=== PATIENT | female | born 1970 | race Caucasian/White ===

== ENCOUNTER → 2020-12-08 07:49 | Outpatient (CLI) | payer BC, SELFPAY ==
[2020-12-08 08:56] LABS: Add Manual Diff / Slide Review NO; Basophils Absolute Auto 0 /uL (0-100); Basophils Percent Auto 0.5 % (0-2); Eosinophils Absolute Auto 100 /uL (0-450); Hematocrit 42.7 % (36-46); Hemoglobin 14.2 g/dL (12.0-16.0); Lymphocytes Absolute Auto 2400 /uL (1100-4500); Lymphocytes Percent Auto 40.5 % (25-40); Mean Corpuscular HGB Conc 33.3 % (30-36); Mean Corpuscular Hemoglobin 34.1 PG (26-34); Mean Corpuscular Volume 102.5 fL (80-100); Monocytes Absolute Auto 700 /uL (0-900); Monocytes Percent Auto 10.9 % (3-14); Neutrophils Absolute Auto 2800 /uL (1500-7000); Neutrophils Percent Auto 47.1 % (50-75); Platelet Count 260 X10^3/uL (150-400); Red Blood Cell Count 4.16 X10^6/uL (4.0-5.2); Red Cell Distribution Width 12.8 % (11.6-14.8)
[2020-12-08 09:29] LABS: Alanine Aminotransferase 31 IU/L (<35); Albumin 4.8 g/dL (3.5-5.0); Albumin Globulin Ratio 1.3 (1.0-2.8); Alkaline Phosphatase 74 U/L (38-126); Aspartate Aminotransferase 42 IU/L (14-36); BUN Creatinine Ratio 18.8 (6-22); Bilirubin Total 0.7 mg/dL (0.2-1.3); Blood Urea Nitrogen 12 mg/dL (7-17); Calcium 9.5 mg/dL (8.4-10.2); Carbon Dioxide 27 mmol/L (22-32); Chloride 103 mmol/L (98-107); Cholesterol 312 mg/dL (140-199); Estimated Glomerular Filt Rate > 60.0 mL/min (>60); Globulin 3.6 g/dL (1.7-4.1); Glucose 90 mg/dL (70-100); Potassium 3.9 mmol/L (3.4-5.1); Sodium 136 mmol/L (137-145); Total Protein 8.4 g/dL (6.3-8.2); Triglycerides 75 mg/dL (35-150)
[2020-12-08 09:36] LABS: HEMOLYSIS 35 (0-50)
[2020-12-08 09:37] LABS: HDL Cholesterol 169 mg/dL (40-60); LDL Cholesterol Calculated 128 mg/dL (<100)
[2020-12-08 09:44] LABS: Free T4, Direct Thyroxine 1.13 ng/dL (0.78-2.19)
[2020-12-08 09:46] LABS: Vitamin D 25 Hydroxy (D3) 61.1 ng/mL (30.0-100.0)
[2020-12-08 09:57] LABS: Thyroid Stimulating Hormone 3.47 uIU/mL (0.47-4.68)
== END ==
PROVIDERS: PCP Family Medicine; Referring Provider Family Medicine; Visit Provider Family Medicine
DX: F32.9 Major depressive disorder, single episode, unspecified (principal); F41.9 Anxiety disorder, unspecified; I10 Essential (primary) hypertension; L65.9 Nonscarring hair loss, unspecified; Z13.29 Encounter for screening for other suspected endocrine disorder; Z80.3 Family history of malignant neoplasm of breast
CPT/HCPCS: 36415; 80053; 80061; 82306; 84439; 84443; 84481; 85025

== ENCOUNTER → 2021-01-15 13:44 | Outpatient (CLI) | payer BC, SELFPAY ==
[2021-01-18 09:24] LABS: Fecal Immunochemical Test Negative (Negative)
== END ==
PROVIDERS: PCP Family Medicine; Referring Provider Family Medicine; Visit Provider Family Medicine
DX: Z12.11 Encounter for screening for malignant neoplasm of colon (principal)
CPT/HCPCS: 82274

== ENCOUNTER → 2021-03-15 10:52 | Outpatient (CLI) | payer BC, SELFPAY ==
--- NOTE | 2021-03-15 10:53 | DI.MG.S_ITS ---
BILATERAL DIGITAL SCREENING MAMMOGRAM 3D/2D WITH CAD: 03/15/2021 CLINICAL: Routine screening. Comparison is made to exams dated: 11/21/2019 mammogram, 11/19/2018 mammogram, and 11/16/2017 mammogram - outside location. The tissue of both breasts is heterogeneously dense. This may lower the sensitivity of mammography. Current study was also evaluated with a Computer Aided Detection (CAD) system. No significant masses, calcifications, or other findings are seen in either breast. There has been no significant interval change. IMPRESSION: NEGATIVE There is no mammographic evidence of malignancy. A 1 year screening mammogram is recommended. This exam was interpreted at Station ID: [id number]. NOTE: For mammograms, a report in lay terms will be sent to the patient. Approximately 15% of breast malignancies will not be visualized mammographically. In the management of a palpable breast mass, a negative mammogram must not discourage biopsy of a clinically suspicious lesion. Electronically Signed By: Jv ramos/esther:03/15/2021 11:43:50 letter sent: Normal Exam ACR BI-RADS Category 1: Negative [id number]
== END ==
PROVIDERS: PCP Family Medicine; Referring Provider Family Medicine; Visit Provider Family Medicine
DX: Z12.31 Encounter for screening mammogram for malignant neoplasm of breast (principal)
CPT/HCPCS: 77063; 77067

== ENCOUNTER → 2021-12-13 07:17 | Outpatient (CLI) | payer BC, SELFPAY ==
[2021-12-13 07:58] LABS: Add Manual Diff / Slide Review NO; Basophils Absolute Auto 0 /uL (0-100); Basophils Percent Auto 0.8 % (0-2); Eosinophils Absolute Auto 100 /uL (0-450); Eosinophils Percent Auto 3.2 % (2-4); Hematocrit 39.5 % (36-46); Hemoglobin 13.3 g/dL (12.0-16.0); Lymphocytes Absolute Auto 1900 /uL (1100-4500); Mean Corpuscular HGB Conc 33.7 % (30-36); Mean Corpuscular Hemoglobin 32.9 PG (26-34); Mean Corpuscular Volume 97.8 fL (80-100); Monocytes Absolute Auto 500 /uL (0-900); Monocytes Percent Auto 13.7 % (3-14); Neutrophils Absolute Auto 1300 /uL (1500-7000); Neutrophils Percent Auto 32.3 % (50-75); Platelet Count 251 X10^3/uL (150-400); Red Blood Cell Count 4.04 X10^6/uL (4.0-5.2); Red Cell Distribution Width 12.4 % (11.6-14.8); White Blood Cell Count 3.9 X10^3/uL (4.5-11.0)
[2021-12-13 08:12] LABS: Alanine Aminotransferase 61 IU/L (<35); Albumin 4.4 g/dL (3.5-5.0); Albumin Globulin Ratio 1.4 (1.0-2.8); Alkaline Phosphatase 64 U/L (38-126); Aspartate Aminotransferase 48 IU/L (14-36); BUN Creatinine Ratio 15.4 (6-22); Bilirubin Total 0.5 mg/dL (0.2-1.3); Blood Urea Nitrogen 10 mg/dL (7-17); Calcium 9.1 mg/dL (8.4-10.2); Carbon Dioxide 33 mmol/L (22-32); Chloride 103 mmol/L (98-107); Cholesterol 277 mg/dL (140-199); Estimated Glomerular Filt Rate > 60.0 mL/min (>60); Globulin 3.2 g/dL (1.7-4.1); Glucose 100 mg/dL (70-100); HDL Cholesterol 107 mg/dL (40-60); HEMOLYSIS < 15 (0-50); LDL Cholesterol Calculated 158 mg/dL (<100); Potassium 4.2 mmol/L (3.4-5.1); Sodium 138 mmol/L (137-145); Total Protein 7.6 g/dL (6.3-8.2); Triglycerides 61 mg/dL (35-150)
== END ==
PROVIDERS: PCP Family Medicine; Referring Provider Family Medicine; Visit Provider Family Medicine
DX: D75.89 Other specified diseases of blood and blood-forming organs (principal); I10 Essential (primary) hypertension
CPT/HCPCS: 36415; 80053; 80061; 85025

== ENCOUNTER → 2022-01-03 11:33 | Outpatient (CLI) | payer BC, SELFPAY ==
[2022-01-04 13:38] LABS: Fecal Immunochemical Test Negative (Negative)
== END ==
PROVIDERS: PCP Family Medicine; Referring Provider Family Medicine; Visit Provider Family Medicine
DX: Z12.11 Encounter for screening for malignant neoplasm of colon (principal)
CPT/HCPCS: 82274

== ENCOUNTER → 2022-03-17 10:17 | Outpatient (CLI) | payer BC, SELFPAY ==
--- NOTE | 2022-03-17 10:19 | DI.MG.S_ITS ---
BILATERAL DIGITAL SCREENING MAMMOGRAM 3D/2D WITH CAD: 03/17/2022 CLINICAL: Routine screening. Comparison is made to exams dated: 03/15/2021 mammogram - [facility], 11/21/2019 mammogram, and 11/19/2018 mammogram - outside location. The tissue of both breasts is heterogeneously dense. This may lower the sensitivity of mammography. Current study was also evaluated with a Computer Aided Detection (CAD) system. No significant masses, calcifications, or other findings are seen in either breast. There has been no significant interval change. IMPRESSION: NEGATIVE There is no mammographic evidence of malignancy. A 1 year screening mammogram is recommended. This exam was interpreted at Station ID: [id number]. NOTE: For mammograms, a report in lay terms will be sent to the patient. Approximately 15% of breast malignancies will not be visualized mammographically. In the management of a palpable breast mass, a negative mammogram must not discourage biopsy of a clinically suspicious lesion. Electronically Signed By: Lupillo goodman/esther:03/17/2022 11:52:30 letter sent: Normal Exam ACR BI-RADS Category 1: Negative 3341F
== END ==
PROVIDERS: PCP Family Medicine; Referring Provider Family Medicine; Visit Provider Family Medicine
DX: Z12.31 Encounter for screening mammogram for malignant neoplasm of breast (principal)
CPT/HCPCS: 77063; 77067

== ENCOUNTER 2022-07-28 11:15 | Outpatient (RCR) | payer BC, SELFPAY ==
--- NOTE | 2022-06-30 18:28 | PT.OIE ---
Current Diagnoses Stiffness of unspecified hip, not elsewhere classified (06/30/22) Low back pain, unspecified (06/30/22) Other specified disorders of muscle (06/30/22) Bladder disorder, unspecified (06/30/22) Right lower quadrant pain (06/30/22) Past Medical History (Last Updated 05/19/22 @ 17:24 by AMADEO Iraheta) Anxiety (~2003) Anxiety and depression FHx: breast cancer Foot pain (~2017) Herpes (~1986) Hypertension (~1997) Iliotibial band syndrome, right leg Macrocytosis without anemia Nonscarring hair loss, unspecified Pelvic floor dysfunction in female Physical exam, annual Recurrent sinusitis (~2018) Screening for breast cancer Wears glasses Past Surgical History (Last Reviewed 05/11/22 @ 15:52 by AMADEO Iraheta) History of removal of cyst (~2004) Visit Care Team Role Provider Type AMADEO Iraheta Attending Provider Advanced Senior Financial Reporting Analyst Family Provider Primary Care Provider Referring Provider Specialty: [facility] Address: [address] [place] [address], [facility] Email: [email or web address] Physical Therapy Initial Evaluation PT-OP-A Visit Information Start: 06/23/22 17:55 Freq: Status: Active Protocol: Document 06/30/22 11:23 LRN (Rec: 06/30/22 12:44 JACQUELINE [id number]) Out-Patient Physical Therapy Visit Information Visit Information Visit Type Initial Evaluation Visit Note 11/21 Therapist only. Visit Start Time 11:23 Visit Stop Time 12:14 Total Visit Minutes 51 Visit Number 11/21 Evaluation Information Evaluation Date 06/30/22 Precautions Precautions Pt reported anxiety with quarterly couselor visits. PT-OP-B Current Condition Start: 06/23/22 17:55 Freq: Status: Active Protocol: Document 06/30/22 11:23 LRN (Rec: 06/30/22 12:44 LRN [id number]) Current Condition History of Current Condition Onset Date 1 yr ago Current Complaints Urinary leakage. History of Current Condition Slow insidious onset. When exert self, trip, sneeze, cough, or with exercise class. Takes magnesium for sleep at night; therefore counteracts it with Metamucil due to loose stool. Prior Treatments and Tests None Developmental History Developmental History Has not had children. Treatment Goals Patient/Caregiver Goals Pt goal is be able to increase PF strength, learn how to properly contract PF, decrease number of voidings (11+) to 7 -9x/day. Don't want to leak with sneezing, laughing and exercise. Painful L hip for past yr. Prior Functional Status Baseline Function- Other No urinary leakage. Current Functional Impairments (Reported) Functional Limitations- Other Urinary leakage with sneezing, lifting and exercise. Personal Factors Other Personal Factors That May Effect Has not had intercouse due to Therapy/Recovery spouse restrictions. 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 Hx of controlled HBP & controlled depression by medications. Hx of anxiety. PT-OP-C Subjective Start: 06/23/22 17:55 Freq: Status: Active Protocol: Document 06/30/22 11:23 LRN (Rec: 06/30/22 12:44 LRN [id number]) Patient Questionnaires Pelvic Pain and Urgency/Frequency Patient Symptom Scale Pelvic Pain Score 10 PT-OP-I Pelvic Floor Start: 06/23/22 17:55 Freq: Status: Active Protocol: Document 06/30/22 11:23 LRN (Rec: 06/30/22 12:44 LRN [id number]) Pelvic Floor Assessment Urine Urinary Symptoms Incomplete Emptying Leakage Size Small Leakage Cause Exercise,Lifting,Sneeze Voiding Frequency 10-12x/day Nocturia 2 Urine Pad Type Panty Liner Bowel Bowel Movement Frequency At least 1x daily Pelvic Clock Pelvic Clock 12-3 Tenderness Pelvic Clock 3-6 Atrophy Pelvic Clock Other Initial palpation only, tender at Pelvic Clock 3. Tender Pelvic clock 1-2, 8, 10 -11. Weak cobntraction Pelvic Clock 1-5. Contraction Ability Voluntary Contraction Moderate Voluntary Relaxation Weak Manual Muscle Testing Left 3 Manual Muscle Testing Right 3 Manual Muscle Testing Anterior 3 Manual Muscle Testing Posterior 3 Muscle Endurance (Seconds) 10 Number of Quick Contractions In 10 10 Seconds Comments Pelvic Floor Comments Pt uses abdomen, gluteals, and hip AD's to perform a PF contraction. PT-OP-J Posture/Palpation/Skin Start: 06/23/22 17:55 Freq: Status: Active Protocol: Document 06/30/22 11:23 LRN (Rec: 06/30/22 12:44 LRN [id number]) Posture Evaluation Position Standing Head/C-Spine Posture Side Bent Left,Forward Head T-Spine Posture Flattened L-Spine Posture Increased Lordosis Pelvis Posture (R) Rotated Posterior,(R) Iliac Crest Superior Comments Posture Comments Slight head tilt L and slight forward head. R chest is posterior. Upper T/S flattened. Decreased tone of R mid paraspinals. PT-OP-K Range of Motion Start: 06/23/22 17:55 Freq: Status: Active Protocol: Document 06/30/22 11:23 LRN (Rec: 06/30/22 12:44 LRN [id number]) Lumbar Spine Range of Motion Lumbar Spine Active Degrees Testing Position Standing Flexion 125 Extension 15 Rotation Right 20 Lateral Flexion Right 15 Comments Trunk flexion is 125 deg's with 75 deg's hip flexion Trunk ext is 15 deg's with 0 deg's hip ext Hip Goniometric Range of Motion Hip Right Passive Testing Position Supine Abduction 45 Internal Rotation 45 External Rotation 80 Comments SLR is WNL Left Passive Testing Position Supine Abduction 45 Internal Rotation 40 External Rotation 60 Comments SLR is WNL PT-OP-M Strength Start: 06/23/22 17:55 Freq: Status: Active Protocol: Document 06/30/22 11:23 LRN (Rec: 06/30/22 12:44 LRN [id number]) Trunk Strength Trunk Manual Muscle Testing Core Stabilization Poor core stab with MMT of flex & ext (R>L) Hip Strength Hip Manual Muscle Testing Right Flexion (L2) 4 Good Comments Strength is 5/5 except as indicated above. Left Comments Strength is 5/5 except as indicated above. PT-OP-Q Treatments Start: 06/23/22 17:55 Freq: Status: Active Protocol: Document 06/30/22 11:23 LRN (Rec: 06/30/22 12:44 LRN [id number]) Therapeutic Exercises Supine Exercises Kegels. Supine Exercise Name Verbal review of Kegel's w/o abs, gluts, Hip AD's Piriformis stretch Supine Exercise Name Ankle over knee, opp LE KTC. Side right Reps/Minutes 1x Self-Care/Home Management Treatment Education Other Education Discussed results of evaluation, goals, and plan of care (POC). Pt agreeable to goals and POC. Activities Self-Care/Home Management Activities Pt educated in proper Kegel ( HEP) to be done without substitute muscles. Issued & verbally reviewed HEP : Piriformis & LTR stretch bilaterally, along with I/S to do Happy Baby Pose, Child's Pose, and Spencer pose. PT-OP-T Assessment and Plan Start: 06/23/22 17:55 Freq: Status: Active Protocol: Document 06/30/22 11:23 LRN (Rec: 06/30/22 12:44 LRN [id number]) Physical Therapy Assessment Rehab Potential Rehabilitation Potential Good Evaluation Complexity Number of Personal Factors/Comorbidities 1-2 Number of Body Systems Impaired 4 or More Clinical Presentation at Evaluation Evolving Impairments Impairments Activity Tolerance,Pain, Posture,ROM,Soft Tissue Mobility Goals Three Impairment Pt uses substitute ms to perform a PF contraction. Short Term Goal (STG) Pt will be able to demonstrate a PF contraction without use of substitute muscles of the TA, Gluteal ms and hip AD's. STG Duration 08/16/22 [facility] Goal (LTG) Improve PF strength 3/5 around the PF clock in isolation of substitute muscles. LTG Duration 09/28/22 Two Impairment Urinary leakage with sneezing, laughing and exercise. Impairment Pt voids 11+ times/day. Pt has urinary leakage with sneezing, laughing and exercise. Short Term Goal (STG) Pt will be able to decrease number of voidings to 7-9x/day without an increase in urinary leakage. STG Duration 08/16/22 [facility] Goal (LTG) Pt will no longer have urinary leakage with sneezing, laughing and exercise. LTG Duration 09/28/22 One Impairment HEP Short Term Goal (STG) Pt will be educated in automatic core stab ex using proper breathing techniques, and PF contraction with laughing, sneezing and exercise. STG Duration 07/22/22 [facility] Goal (LTG) Pt will be educated in self care HEP of core & core/R hip flex/ext strengthening, Mobility ex's: trunk R SB, L hip ER, bilateral IR. LTG Duration 09/28/22 Assessment Summary Assessment Pt presents with PF tightness/ tenderness in PF clock 1-3, 8, and 10-11. Pt has weakness in PF clock 1-5 (L side). Pt has not had intercourse recently due to spouse health limitations, that may have in the past helped to provide stretch to her pelvic floor. Due to time constraints I was not able to assess her PF strength per EMG biofeedback, but will attempt at next visit . The pt demonstrates poor PF contraction technique with extensive use of substitute muscles to assist with her contraction. She also demonstrates poor core stabilization and lacks good coordination of her PF muscles when fly resulting in tightening of her PF without a drawing in pull. The pt's rehab will also be hindered by her low back pain and occasional R anterior hip pain that will probably need to be addressed during her PF rehabilitation. The pt will benefit from skilled physical therapy to achieve the above stated goals. Physical Therapy Plan Frequency and Duration Frequency of Treatment 1x/Week Plan of Care Start Date 06/30/22 Plan of Care End Date 08/16/22 Therapeutic Interventions Therapeutic Interventions Home Exercise Program,Joint Mobilizations,Manual Therapy, Neuromuscular Re-education, Patient/Caregiver Education, Self-Care/Home Management,Soft Tissue Mobilization, Therapeutic Activities, Therapeutic Exercises Modalities Cold Pack/Ice Massage,Electric Stimulation,Hot Packs Next Visit Focus/Plan Next Note Type Treatment Note Next Visit Plan Review Kegel without substitute muscles. EMG biofeedback training PF stretch with wand, Issue Bladder diary. Education in automatic core stab ex using proper breathing techniques bladder irritants, and PF contraction with laughing, sneezing and exercise (aggrevators). HEP of core & core/R hip flex/ ext strengthening, Mobility ex 's: trunk R SB, L hip ER, bilateral IR.
--- NOTE | 2022-06-30 18:29 | PT.OIE ---
Current Diagnoses Stiffness of unspecified hip, not elsewhere classified (06/30/22) Low back pain, unspecified (06/30/22) Other specified disorders of muscle (06/30/22) Bladder disorder, unspecified (06/30/22) Right lower quadrant pain (06/30/22) Past Medical History (Last Updated 05/19/22 @ 17:24 by AMADEO Iraheta) Anxiety (~2003) Anxiety and depression FHx: breast cancer Foot pain (~2017) Herpes (~1986) Hypertension (~1997) Iliotibial band syndrome, right leg Macrocytosis without anemia Nonscarring hair loss, unspecified Pelvic floor dysfunction in female Physical exam, annual Recurrent sinusitis (~2018) Screening for breast cancer Wears glasses Past Surgical History (Last Reviewed 05/11/22 @ 15:52 by AMADEO Iraheta) History of removal of cyst (~2004) Visit Care Team Role Provider Type AMADEO Iraheta Attending Provider Advanced Air Defense Artillery Officer Family Provider Primary Care Provider Referring Provider Specialty: [facility] Address: [address] [place] [address], [facility] Email: [email or web address] Physical Therapy Initial Evaluation PT-OP-A Visit Information Start: 06/23/22 17:55 Freq: Status: Active Protocol: Document 06/30/22 11:23 LRN (Rec: 06/30/22 12:44 JACQUELINE [id number]) Out-Patient Physical Therapy Visit Information Visit Information Visit Type Initial Evaluation Visit Note 11/21 Therapist only. Visit Start Time 11:23 Visit Stop Time 12:14 Total Visit Minutes 51 Visit Number 11/21 Evaluation Information Evaluation Date 06/30/22 Precautions Precautions Pt reported anxiety with quarterly couselor visits. PT-OP-B Current Condition Start: 06/23/22 17:55 Freq: Status: Active Protocol: Document 06/30/22 11:23 LRN (Rec: 06/30/22 12:44 LRN [id number]) Current Condition History of Current Condition Onset Date 1 yr ago Current Complaints Urinary leakage. History of Current Condition Slow insidious onset. When exert self, trip, sneeze, cough, or with exercise class. Takes magnesium for sleep at night; therefore counteracts it with Metamucil due to loose stool. Prior Treatments and Tests None Developmental History Developmental History Has not had children. Treatment Goals Patient/Caregiver Goals Pt goal is be able to increase PF strength, learn how to properly contract PF, decrease number of voidings (11+) to 7 -9x/day. Don't want to leak with sneezing, laughing and exercise. Painful L hip for past yr. Prior Functional Status Baseline Function- Other No urinary leakage. Current Functional Impairments (Reported) Functional Limitations- Other Urinary leakage with sneezing, lifting and exercise. Personal Factors Other Personal Factors That May Effect Has not had intercouse due to Therapy/Recovery spouse restrictions. 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 Hx of controlled HBP & controlled depression by medications. Hx of anxiety. PT-OP-C Subjective Start: 06/23/22 17:55 Freq: Status: Active Protocol: Document 06/30/22 11:23 LRN (Rec: 06/30/22 12:44 LRN [id number]) Patient Questionnaires Pelvic Pain and Urgency/Frequency Patient Symptom Scale Pelvic Pain Score 10 PT-OP-I Pelvic Floor Start: 06/23/22 17:55 Freq: Status: Active Protocol: Document 06/30/22 11:23 LRN (Rec: 06/30/22 12:44 LRN [id number]) Pelvic Floor Assessment Urine Urinary Symptoms Incomplete Emptying Leakage Size Small Leakage Cause Exercise,Lifting,Sneeze Voiding Frequency 10-12x/day Nocturia 2 Urine Pad Type Panty Liner Bowel Bowel Movement Frequency At least 1x daily Pelvic Clock Pelvic Clock 12-3 Tenderness Pelvic Clock 3-6 Atrophy Pelvic Clock Other Initial palpation only, tender at Pelvic Clock 3. Tender Pelvic clock 1-2, 8, 10 -11. Weak cobntraction Pelvic Clock 1-5. Contraction Ability Voluntary Contraction Moderate Voluntary Relaxation Weak Manual Muscle Testing Left 3 Manual Muscle Testing Right 3 Manual Muscle Testing Anterior 3 Manual Muscle Testing Posterior 3 Muscle Endurance (Seconds) 10 Number of Quick Contractions In 10 10 Seconds Comments Pelvic Floor Comments Pt uses abdomen, gluteals, and hip AD's to perform a PF contraction. PT-OP-J Posture/Palpation/Skin Start: 06/23/22 17:55 Freq: Status: Active Protocol: Document 06/30/22 11:23 LRN (Rec: 06/30/22 12:44 LRN [id number]) Posture Evaluation Position Standing Head/C-Spine Posture Side Bent Left,Forward Head T-Spine Posture Flattened L-Spine Posture Increased Lordosis Pelvis Posture (R) Rotated Posterior,(R) Iliac Crest Superior Comments Posture Comments Slight head tilt L and slight forward head. R chest is posterior. Upper T/S flattened. Decreased tone of R mid paraspinals. PT-OP-K Range of Motion Start: 06/23/22 17:55 Freq: Status: Active Protocol: Document 06/30/22 11:23 LRN (Rec: 06/30/22 12:44 LRN [id number]) Lumbar Spine Range of Motion Lumbar Spine Active Degrees Testing Position Standing Flexion 125 Extension 15 Rotation Right 20 Lateral Flexion Right 15 Comments Trunk flexion is 125 deg's with 75 deg's hip flexion Trunk ext is 15 deg's with 0 deg's hip ext Hip Goniometric Range of Motion Hip Right Passive Testing Position Supine Abduction 45 Internal Rotation 45 External Rotation 80 Comments SLR is WNL Left Passive Testing Position Supine Abduction 45 Internal Rotation 40 External Rotation 60 Comments SLR is WNL PT-OP-M Strength Start: 06/23/22 17:55 Freq: Status: Active Protocol: Document 06/30/22 11:23 LRN (Rec: 06/30/22 12:44 LRN [id number]) Trunk Strength Trunk Manual Muscle Testing Core Stabilization Poor core stab with MMT of flex & ext (R>L) Hip Strength Hip Manual Muscle Testing Right Flexion (L2) 4 Good Comments Strength is 5/5 except as indicated above. Left Comments Strength is 5/5 except as indicated above. PT-OP-Q Treatments Start: 06/23/22 17:55 Freq: Status: Active Protocol: Document 06/30/22 11:23 LRN (Rec: 06/30/22 12:44 LRN [id number]) Therapeutic Exercises Supine Exercises Kegels. Supine Exercise Name Verbal review of Kegel's w/o abs, gluts, Hip AD's Piriformis stretch Supine Exercise Name Ankle over knee, opp LE KTC. Side right Reps/Minutes 1x Self-Care/Home Management Treatment Education Other Education Discussed results of evaluation, goals, and plan of care (POC). Pt agreeable to goals and POC. Activities Self-Care/Home Management Activities Pt educated in proper Kegel ( HEP) to be done without substitute muscles. Issued & verbally reviewed HEP : Piriformis & LTR stretch bilaterally, along with I/S to do Happy Baby Pose, Child's Pose, and [place] pose. PT-OP-T Assessment and Plan Start: 06/23/22 17:55 Freq: Status: Active Protocol: Document 06/30/22 11:23 LRN (Rec: 06/30/22 12:44 LRN [id number]) Physical Therapy Assessment Rehab Potential Rehabilitation Potential Good Evaluation Complexity Number of Personal Factors/Comorbidities 1-2 Number of Body Systems Impaired 4 or More Clinical Presentation at Evaluation Evolving Impairments Impairments Activity Tolerance,Pain, Posture,ROM,Soft Tissue Mobility Goals Three Impairment Pt uses substitute ms to perform a PF contraction. Short Term Goal (STG) Pt will be able to demonstrate a PF contraction without use of substitute muscles of the TA, Gluteal ms and hip AD's. STG Duration 08/16/22 Retirement Goal (LTG) Improve PF strength 3/5 around the PF clock in isolation of substitute muscles. LTG Duration 09/28/22 Two Impairment Urinary leakage with sneezing, laughing and exercise. Impairment Pt voids 11+ times/day. Pt has urinary leakage with sneezing, laughing and exercise. Short Term Goal (STG) Pt will be able to decrease number of voidings to 7-9x/day without an increase in urinary leakage. STG Duration 08/16/22 Retirement Goal (LTG) Pt will no longer have urinary leakage with sneezing, laughing and exercise. LTG Duration 09/28/22 One Impairment HEP Short Term Goal (STG) Pt will be educated in automatic core stab ex using proper breathing techniques, and PF contraction with laughing, sneezing and exercise. STG Duration 07/22/22 Retirement Goal (LTG) Pt will be educated in self care HEP of core & core/R hip flex/ext strengthening, Mobility ex's: trunk R SB, L hip ER, bilateral IR. LTG Duration 09/28/22 Assessment Summary Assessment Pt presents with PF tightness/ tenderness in PF clock 1-3, 8, and 10-11. Pt has weakness in PF clock 1-5 (L side). Pt has not had intercourse recently due to spouse health limitations, that may have in the past helped to provide stretch to her pelvic floor. Due to time constraints I was not able to assess her PF strength per EMG biofeedback, but will attempt at next visit . The pt demonstrates poor PF contraction technique with extensive use of substitute muscles to assist with her contraction. She also demonstrates poor core stabilization and lacks good coordination of her PF muscles when fly resulting in tightening of her PF without a drawing in pull. The pt's rehab will also be hindered by her low back pain and occasional R anterior hip pain that will probably need to be addressed during her PF rehabilitation. The pt will benefit from skilled physical therapy to achieve the above stated goals. Physical Therapy Plan Frequency and Duration Frequency of Treatment 1x/Week Plan of Care Start Date 06/30/22 Plan of Care End Date 09/28/22 Therapeutic Interventions Therapeutic Interventions Home Exercise Program,Joint Mobilizations,Manual Therapy, Neuromuscular Re-education, Patient/Caregiver Education, Self-Care/Home Management,Soft Tissue Mobilization, Therapeutic Activities, Therapeutic Exercises Modalities Cold Pack/Ice Massage,Electric Stimulation,Hot Packs Next Visit Focus/Plan Next Note Type Treatment Note Next Visit Plan Review Kegel without substitute muscles. EMG biofeedback training PF stretch with wand, Issue Bladder diary. Education in automatic core stab ex using proper breathing techniques bladder irritants, and PF contraction with laughing, sneezing and exercise (aggrevators). HEP of core & core/R hip flex/ ext strengthening, Mobility ex 's: trunk R SB, L hip ER, bilateral IR.
--- NOTE | 2022-07-14 18:09 | PT.OTN ---
Current Diagnoses Stiffness of unspecified hip, not elsewhere classified (07/14/22) Low back pain, unspecified (07/14/22) Other specified disorders of muscle (07/14/22) Bladder disorder, unspecified (07/14/22) Right lower quadrant pain (07/14/22) Physical Therapy Treatment Note PT-OP-A Visit Information Start: 06/23/22 17:55 Freq: Status: Active Protocol: Document 07/14/22 13:49 LRN (Rec: 07/14/22 14:34 LRN [id number]) Out-Patient Physical Therapy Visit Information Visit Information Visit Type Treatment Note Visit Start Time 13:49 Visit Stop Time 14:27 Total Visit Minutes 38 Visit Number Evaluation Information Evaluation Date 06/30/22 Precautions Precautions Pt reported anxiety with quarterly couselor visits. PT-OP-B Current Condition Start: 06/23/22 17:55 Freq: Status: Active Protocol: Document 06/30/22 11:23 LRN (Rec: 06/30/22 12:44 LRN [id number]) Current Condition History of Current Condition Onset Date 1 yr ago Current Complaints Urinary leakage. History of Current Condition Slow insidious onset. When exert self, trip, sneeze, cough, or with exercise class. Takes magnesium for sleep at night; therefore counteracts it with Metamucil due to loose stool. Prior Treatments and Tests None Developmental History Developmental History Has not had children. Treatment Goals Patient/Caregiver Goals Pt goal is be able to increase PF strength, learn how to properly contract PF, decrease number of voidings (11+) to 7 -9x/day. Don't want to leak with sneezing, laughing and exercise. Painful L hip for past yr. Prior Functional Status Baseline Function- Other No urinary leakage. Current Functional Impairments (Reported) Functional Limitations- Other Urinary leakage with sneezing, lifting and exercise. Personal Factors Other Personal Factors That May Effect Has not had intercouse due to Therapy/Recovery spouse restrictions. 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 Hx of controlled HBP & controlled depression by medications. Hx of anxiety. PT-OP-C Subjective Start: 06/23/22 17:55 Freq: Status: Active Protocol: Document 07/14/22 13:49 LRN (Rec: 07/14/22 14:34 LRN [id number]) OP-PT Subjective Patient Comments Patient Comments Coughed this morning and felt some leakage. Her lower left back has been uncomfortable and has taken IBP. PT-OP-I Pelvic Floor Start: 06/23/22 17:55 Freq: Status: Active Protocol: Document 07/14/22 13:49 LRN (Rec: 07/14/22 14:34 LRN [id number]) Pelvic Floor Assessment SEMG (uV) Baseline 0.5 Quick Contraction 2.6 10 Second Contraction 1.4 Recruitment Pattern Good Relaxation Good Holding Poor/Slow Stability of Hold Poor/Slow SEMG Stability of Rest Good PT-OP-J Posture/Palpation/Skin Start: 06/23/22 17:55 Freq: Status: Active Protocol: Document 06/30/22 11:23 LRN (Rec: 06/30/22 12:44 LRN [id number]) Posture Evaluation Position Standing Head/C-Spine Posture Side Bent Left,Forward Head T-Spine Posture Flattened L-Spine Posture Increased Lordosis Pelvis Posture (R) Rotated Posterior,(R) Iliac Crest Superior Comments Posture Comments Slight head tilt L and slight forward head. R chest is posterior. Upper T/S flattened. Decreased tone of R mid paraspinals. PT-OP-K Range of Motion Start: 06/23/22 17:55 Freq: Status: Active Protocol: Document 06/30/22 11:23 LRN (Rec: 06/30/22 12:44 LRN [id number]) Lumbar Spine Range of Motion Lumbar Spine Active Degrees Testing Position Standing Flexion 125 Extension 15 Rotation Right 20 Lateral Flexion Right 15 Comments Trunk flexion is 125 deg's with 75 deg's hip flexion Trunk ext is 15 deg's with 0 deg's hip ext Hip Goniometric Range of Motion Hip Right Passive Testing Position Supine Abduction 45 Internal Rotation 45 External Rotation 80 Comments SLR is WNL Left Passive Testing Position Supine Abduction 45 Internal Rotation 40 External Rotation 60 Comments SLR is WNL PT-OP-M Strength Start: 06/23/22 17:55 Freq: Status: Active Protocol: Document 06/30/22 11:23 LRN (Rec: 06/30/22 12:44 LRN [id number]) Trunk Strength Trunk Manual Muscle Testing Core Stabilization Poor core stab with MMT of flex & ext (R>L) Hip Strength Hip Manual Muscle Testing Right Flexion (L2) 4 Good Comments Strength is 5/5 except as indicated above. Left Comments Strength is 5/5 except as indicated above. PT-OP-Q Treatments Start: 06/23/22 17:55 Freq: Status: Active Protocol: Document 07/14/22 13:49 LRN (Rec: 07/14/22 14:34 LRN [id number]) Therapeutic Exercises Supine Exercises TA tightening Supine Exercise Name TA tightening Reps/Minutes 8' PF Long Holds Supine Exercise Name Long Holds Comments Extra time for training. PF Quick Flicks Supine Exercise Name Quick Flicks Comments Extra time for training and placement of electrode. Kegels. Supine Exercise Name Kegel's w/o abs, gluts, Hip AD 's Comments v cuing with pt hands on abdomen & gluts for self feedback. PT-OP-T Assessment and Plan Start: 06/23/22 17:55 Freq: Status: Active Protocol: Document 07/14/22 13:49 LRN (Rec: 07/14/22 14:34 LRN [id number]) Physical Therapy Assessment Goals Three Impairment Pt uses substitute ms to perform a PF contraction. Short Term Goal (STG) Pt will be able to demonstrate a PF contraction without use of substitute muscles of the TA, Gluteal ms and hip AD's. 07/14/22: Pt able to perform a PF contraction with very minimal input from TA, GLuts and hip AD's on command. STG Duration 08/16/22 (07/14/22: MET GOAL) Senior Living Goal (LTG) Improve PF strength 3/5 around the PF clock in isolation of substitute muscles. LTG Duration 09/28/22 Two Impairment Urinary leakage with sneezing, laughing and exercise. Impairment Pt voids 11+ times/day. Pt has urinary leakage with sneezing, laughing and exercise. Short Term Goal (STG) Pt will be able to decrease number of voidings to 7-9x/day without an increase in urinary leakage. STG Duration 08/16/22 Strategic Partnership Specialist Goal (LTG) Pt will no longer have urinary leakage with sneezing, laughing and exercise. LTG Duration 09/28/22 One Impairment HEP Short Term Goal (STG) Pt will be educated in automatic core stab ex using proper breathing techniques, and PF contraction with laughing, sneezing and exercise. STG Duration 07/22/22 Strategic Partnership Specialist Goal (LTG) Pt will be educated in self care HEP of core & core/R hip flex/ext strengthening, Mobility ex's: trunk R SB, L hip ER, bilateral IR. LTG Duration 09/28/22 Assessment Summary Assessment Pt was able to perform a PF contractioin with minimal TA and no gluteal/hip AD contraction. Baseline resting tone is 0.5 uV's, 10 Quick Flicks Avg work is 2.6 uV's, avg resting tone is 1.3 uV's ( 20 reps: avg work is 2.8uV's, avg rest is 1.5 uV's). Long hold (10 secs/10 sec rest) avg work is 1.4 uV's, avg rest is 1.3 uV's. Pt is weak with PF contraction long hold > Quick Flicks due to PF tightness. Physical Therapy Plan Frequency and Duration Frequency of Treatment 1x/Week Plan of Care Start Date 06/30/22 Plan of Care End Date 09/28/22 Next Visit Focus/Plan Next Note Type Treatment Note Next Visit Plan PF stretch with wand, Issue Bladder diary. Education in automatic core stab ex using proper breathing techniques bladder irritants, and PF contraction with laughing, sneezing and exercise (aggrevators). HEP of core & core/R hip flex/ ext strengthening, Mobility ex 's: trunk R SB, L hip ER, bilateral IR.
--- NOTE | 2022-07-21 12:16 | PT.OTN ---
Current Diagnoses Stiffness of unspecified hip, not elsewhere classified (07/21/22) Low back pain, unspecified (07/21/22) Other specified disorders of muscle (07/21/22) Bladder disorder, unspecified (07/21/22) Right lower quadrant pain (07/21/22) Physical Therapy Treatment Note PT-OP-A Visit Information Start: 06/23/22 17:55 Freq: Status: Active Protocol: Document 07/21/22 11:18 LRN (Rec: 07/21/22 12:15 LRN [id number]) Out-Patient Physical Therapy Visit Information Visit Information Visit Type Treatment Note Visit Start Time 11:17 Visit Stop Time 11:59 Total Visit Minutes 42 Visit Number 01/19 Evaluation Information Evaluation Date 06/30/22 Precautions Precautions Pt reported anxiety with quarterly couselor visits. PT-OP-B Current Condition Start: 06/23/22 17:55 Freq: Status: Active Protocol: Document 06/30/22 11:23 LRN (Rec: 06/30/22 12:44 LRN [id number]) Current Condition History of Current Condition Onset Date 1 yr ago Current Complaints Urinary leakage. History of Current Condition Slow insidious onset. When exert self, trip, sneeze, cough, or with exercise class. Takes magnesium for sleep at night; therefore counteracts it with Metamucil due to loose stool. Prior Treatments and Tests None Developmental History Developmental History Has not had children. Treatment Goals Patient/Caregiver Goals Pt goal is be able to increase PF strength, learn how to properly contract PF, decrease number of voidings (11+) to 7 -9x/day. Don't want to leak with sneezing, laughing and exercise. Painful L hip for past yr. Prior Functional Status Baseline Function- Other No urinary leakage. Current Functional Impairments (Reported) Functional Limitations- Other Urinary leakage with sneezing, lifting and exercise. Personal Factors Other Personal Factors That May Effect Has not had intercouse due to Therapy/Recovery spouse restrictions. 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 Hx of controlled HBP & controlled depression by medications. Hx of anxiety. PT-OP-C Subjective Start: 06/23/22 17:55 Freq: Status: Active Protocol: Document 07/21/22 11:18 LRN (Rec: 07/21/22 12:15 LRN [id number]) OP-PT Subjective Patient Comments Patient Comments Lower L back has been hurting because went on a 5.5 hr ride. Hasn't notcied any leakage since coming to therapy. PT-OP-I Pelvic Floor Start: 06/23/22 17:55 Freq: Status: Active Protocol: Document 07/14/22 13:49 LRN (Rec: 07/14/22 14:34 LRN [id number]) Pelvic Floor Assessment SEMG (uV) Baseline 0.5 Quick Contraction 2.6 10 Second Contraction 1.4 Recruitment Pattern Good Relaxation Good Holding Poor/Slow Stability of Hold Poor/Slow SEMG Stability of Rest Good PT-OP-J Posture/Palpation/Skin Start: 06/23/22 17:55 Freq: Status: Active Protocol: Document 06/30/22 11:23 LRN (Rec: 06/30/22 12:44 LRN [id number]) Posture Evaluation Position Standing Head/C-Spine Posture Side Bent Left,Forward Head T-Spine Posture Flattened L-Spine Posture Increased Lordosis Pelvis Posture (R) Rotated Posterior,(R) Iliac Crest Superior Comments Posture Comments Slight head tilt L and slight forward head. R chest is posterior. Upper T/S flattened. Decreased tone of R mid paraspinals. PT-OP-K Range of Motion Start: 06/23/22 17:55 Freq: Status: Active Protocol: Document 07/21/22 11:18 LRN (Rec: 07/21/22 12:15 LRN [id number]) Hip Goniometric Range of Motion Hip Right Passive Testing Position Supine Abduction 37 Internal Rotation 40 External Rotation 60 Comments SLR is WNL Left Passive Testing Position Supine Abduction 40 Internal Rotation 40 External Rotation 60 Comments SLR is WNL PT-OP-M Strength Start: 06/23/22 17:55 Freq: Status: Active Protocol: Document 06/30/22 11:23 LRN (Rec: 06/30/22 12:44 LRN [id number]) Trunk Strength Trunk Manual Muscle Testing Core Stabilization Poor core stab with MMT of flex & ext (R>L) Hip Strength Hip Manual Muscle Testing Right Flexion (L2) 4 Good Comments Strength is 5/5 except as indicated above. Left Comments Strength is 5/5 except as indicated above. PT-OP-Q Treatments Start: 06/23/22 17:55 Freq: Status: Active Protocol: Document 07/21/22 11:18 LRN (Rec: 07/21/22 12:15 LRN [id number]) Therapeutic Exercises Supine Exercises R SLR Supine Exercise Name SLR Side right Reps/Minutes 15x Comments Cuing for core stab Self L/S traction Supine Exercise Name Pulling self into traction with UE's Reps/Minutes 5-10SH x 10 Lateral HIp stretch Supine Exercise Name Lateral Hip stretch Side left Reps/Minutes 2x TA tightening Supine Exercise Name TA tightening Reps/Minutes 8' Kegels. Supine Exercise Name Kegel's w/o abs, gluts, Hip AD 's Comments v cuing with pt hands on abdomen & gluts for self feedback. Piriformis stretch Supine Exercise Name Ankle over knee, opp LE KTC. Side bilateral Reps/Minutes 1x Prone Exercises R hip Ext w/core stab Prone Exercise Name Hip Ext w/core stab training Side right Reps/Minutes 15x PARDEEP Prone Exercise Name PARDEEP Reps/Minutes 15x Sidelying Exercises Clamshell Sidelying Exercise Name Clamshell Side bilateral Reps/Minutes 15x Standing Exercises Posture training w/yogi line Standing Exercise Name Posture training Side bilateral Reps/Minutes 68 Comments W/O shoes: Cuing ribcage over hips, slight anter PT, equal WBing thru feet Self-Care/Home Management Treatment Education Patient Education Home Exercise Program Other Education Educated pt in sitting posture in car with towel roll behind LB and discussed importance of maintaining a slight L/S curvature. Pt education with discussion of normal standing posture. Activities Self-Care/Home Management Activities Issued & reviewed HEP: Farnaz, R SLR, R prone hip ext strengthening. PT-OP-T Assessment and Plan Start: 06/23/22 17:55 Freq: Status: Active Protocol: Document 07/21/22 11:18 LRN (Rec: 07/21/22 12:15 LRN [id number]) Physical Therapy Assessment Goals Three Impairment Pt uses substitute ms to perform a PF contraction. Short Term Goal (STG) Pt will be able to demonstrate a PF contraction without use of substitute muscles of the TA, Gluteal ms and hip AD's. 07/14/22: Pt able to perform a PF contraction with very minimal input from TA, GLuts and hip AD's on command. STG Duration 08/16/22 (07/14/22: MET GOAL) Usp Goal (LTG) Improve PF strength 3/5 around the PF clock in isolation of substitute muscles. LTG Duration 09/28/22 Two Impairment Urinary leakage with sneezing, laughing and exercise. Impairment Pt voids 11+ times/day. Pt has urinary leakage with sneezing, laughing and exercise. Short Term Goal (STG) Pt will be able to decrease number of voidings to 7-9x/day without an increase in urinary leakage. (07/21/22: No urinary leakage past week; only had to urinate 1x throught the night and has been urinating every 4 hours in past 3 days) STG Duration 08/16/22 (07/21/22: MET GOAL ) Usp Goal (LTG) Pt will no longer have urinary leakage with sneezing, laughing and exercise. (07/21/22 No urinary leakage) LTG Duration 09/28/22 (07/21/22: MET GOAL) One Impairment HEP Short Term Goal (STG) Pt will be educated in automatic core stab ex using proper breathing techniques, and PF contraction with laughing, sneezing and exercise. STG Duration 07/22/22 (07/21/22: MET GOAL) Electrician Journeyman Wireman Goal (LTG) Pt will be educated in self care HEP of core & core/R hip flex/ext strengthening, Mobility ex's: trunk R SB, L hip ER, bilateral IR. 06/30/22: HEP: Piriformis & LTR hip stretches, and Happy Baby Pose, Child's Pose, and [place] pose. 07/21/22: HEP: Clamshell, Core stab w/R SLR & hip AB, PARDEEP f/b self L/S traction in supine. LTG Duration 09/28/22 (07/21/22: Progresssing) Assessment Summary Assessment Pt demonstrates automatic TA activation with laughing and she reports automatic contraction with sneezing. She has not returned to high impact exercise and is not sure if she will return, choosing walking and yoga instead. Pt hip mobility has normalized for rotation and mostly with AB; therefore focus change to core stab and PF stretching/strengthening. Physical Therapy Plan Frequency and Duration Frequency of Treatment 1x/Week Plan of Care Start Date 06/30/22 Plan of Care End Date 09/28/22 Next Visit Focus/Plan Next Note Type Treatment Note Next Visit Plan Possible need for PF stretch with wand, assess PF strength digitally and with biofeedback. Issue Bladder diary if needed to track voiding history. Education in bladder irritants. Review issued HEP: R hip flex /ext strengthening and clamshell w/core stabilized. HEP of core strengthening & Mobility ex's: trunk R SB.
--- NOTE | 2022-07-28 12:25 | PT.OTN ---
Current Diagnoses Stiffness of unspecified hip, not elsewhere classified (07/28/22) Low back pain, unspecified (07/28/22) Other specified disorders of muscle (07/28/22) Bladder disorder, unspecified (07/28/22) Right lower quadrant pain (07/28/22) Physical Therapy Treatment Note PT-OP-A Visit Information Start: 06/23/22 17:55 Freq: Status: Active Protocol: Document 07/28/22 11:24 LRN (Rec: 07/28/22 12:15 LRN [id number]) Out-Patient Physical Therapy Visit Information Visit Information Visit Type Treatment Note Visit Start Time 11:24 Visit Stop Time 12:02 Total Visit Minutes 38 Visit Number 02/19 Evaluation Information Evaluation Date 06/30/22 Precautions Precautions Pt reported anxiety with quarterly couselor visits. PT-OP-B Current Condition Start: 06/23/22 17:55 Freq: Status: Active Protocol: Document 06/30/22 11:23 LRN (Rec: 06/30/22 12:44 LRN [id number]) Current Condition History of Current Condition Onset Date 1 yr ago Current Complaints Urinary leakage. History of Current Condition Slow insidious onset. When exert self, trip, sneeze, cough, or with exercise class. Takes magnesium for sleep at night; therefore counteracts it with Metamucil due to loose stool. Prior Treatments and Tests None Developmental History Developmental History Has not had children. Treatment Goals Patient/Caregiver Goals Pt goal is be able to increase PF strength, learn how to properly contract PF, decrease number of voidings (11+) to 7 -9x/day. Don't want to leak with sneezing, laughing and exercise. Painful L hip for past yr. Prior Functional Status Baseline Function- Other No urinary leakage. Current Functional Impairments (Reported) Functional Limitations- Other Urinary leakage with sneezing, lifting and exercise. Personal Factors Other Personal Factors That May Effect Has not had intercouse due to Therapy/Recovery spouse restrictions. 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 Hx of controlled HBP & controlled depression by medications. Hx of anxiety. PT-OP-C Subjective Start: 06/23/22 17:55 Freq: Status: Active Protocol: Document 07/28/22 11:24 LRN (Rec: 07/28/22 12:15 LRN [id number]) OP-PT Subjective Patient Comments Patient Comments Had tingling in abdomen after exercise, thinks it may be due to exercising. Sneezed and laughed and did a [place] class and had no leakage. Rode a bike, went for hike and had no leakage. Back feels better with no soreness today. Used towel roll behind back on a long car ride and the back felt much better. PT-OP-I Pelvic Floor Start: 06/23/22 17:55 Freq: Status: Active Protocol: Document 07/14/22 13:49 LRN (Rec: 07/14/22 14:34 LRN [id number]) Pelvic Floor Assessment SEMG (uV) Baseline 0.5 Quick Contraction 2.6 10 Second Contraction 1.4 Recruitment Pattern Good Relaxation Good Holding Poor/Slow Stability of Hold Poor/Slow SEMG Stability of Rest Good PT-OP-J Posture/Palpation/Skin Start: 06/23/22 17:55 Freq: Status: Active Protocol: Document 06/30/22 11:23 LRN (Rec: 06/30/22 12:44 LRN [id number]) Posture Evaluation Position Standing Head/C-Spine Posture Side Bent Left,Forward Head T-Spine Posture Flattened L-Spine Posture Increased Lordosis Pelvis Posture (R) Rotated Posterior,(R) Iliac Crest Superior Comments Posture Comments Slight head tilt L and slight forward head. R chest is posterior. Upper T/S flattened. Decreased tone of R mid paraspinals. PT-OP-K Range of Motion Start: 06/23/22 17:55 Freq: Status: Active Protocol: Document 07/21/22 11:18 LRN (Rec: 07/21/22 12:15 LRN [id number]) Hip Goniometric Range of Motion Hip Right Passive Testing Position Supine Abduction 37 Internal Rotation 40 External Rotation 60 Comments SLR is WNL Left Passive Testing Position Supine Abduction 40 Internal Rotation 40 External Rotation 60 Comments SLR is WNL PT-OP-M Strength Start: 06/23/22 17:55 Freq: Status: Active Protocol: Document 06/30/22 11:23 LRN (Rec: 06/30/22 12:44 LRN [id number]) Trunk Strength Trunk Manual Muscle Testing Core Stabilization Poor core stab with MMT of flex & ext (R>L) Hip Strength Hip Manual Muscle Testing Right Flexion (L2) 4 Good Comments Strength is 5/5 except as indicated above. Left Comments Strength is 5/5 except as indicated above. PT-OP-Q Treatments Start: 06/23/22 17:55 Freq: Status: Active Protocol: Document 07/28/22 11:24 LRN (Rec: 07/28/22 12:15 LRN [id number]) Therapeutic Exercises Supine Exercises R SLR Supine Exercise Name SLR Side right Reps/Minutes 15x 2 Comments Cuing for core stab/breathe and mvmt of RLE Lateral HIp stretch Supine Exercise Name Lateral Hip stretch Side bilateral Reps/Minutes 30 SH x 2 Comments I/S pt in bilateral stretch Piriformis stretch Supine Exercise Name Ankle over knee, opp LE KTC. Side bilateral Reps/Minutes 30 SH x 2 Comments Cuing for hip on table for stretch to hip Prone Exercises R hip Ext w/core stab Prone Exercise Name Hip Ext w/core stab training Side right Reps/Minutes 15x 2 Comments Cuing & training for keeping pelvis stable PARDEEP Prone Exercise Name PARDEEP Reps/Minutes 15x Sidelying Exercises Clamshell Sidelying Exercise Name Clamshell Side bilateral Reps/Minutes 15x 2 Comments Cuing needed for positioning and proper mvmt of ex Self-Care/Home Management Treatment Education Other Education Issued bladder diary & educated her in use of Bladder Diary and I/S in tracking for 1 week. Explained how to fill out diary and counting of urination times. Educated and discussed with pt bladder irritant foods/drinks and made recommended suggestions to foods to limit if increased voiding. Activities Self-Care/Home Management Activities Reviewed and modified pt's HEP for reps, holds and which sides to perform. Issued & reviewed HEP: PARDEEP. PT-OP-T Assessment and Plan Start: 06/23/22 17:55 Freq: Status: Active Protocol: Document 07/28/22 11:24 LRN (Rec: 07/28/22 12:15 LRN [id number]) Physical Therapy Assessment Goals Three Impairment Pt uses substitute ms to perform a PF contraction. Short Term Goal (STG) Pt will be able to demonstrate a PF contraction without use of substitute muscles of the TA, Gluteal ms and hip AD's. 07/14/22: Pt able to perform a PF contraction with very minimal input from TA, GLuts and hip AD's on command. STG Duration 08/16/22 (07/14/22: MET GOAL) Residential Goal (LTG) Improve PF strength 3/5 around the PF clock in isolation of substitute muscles. LTG Duration 09/28/22 Two Impairment Urinary leakage with sneezing, laughing and exercise. Impairment Pt voids 11+ times/day. Pt has urinary leakage with sneezing, laughing and exercise. Short Term Goal (STG) Pt will be able to decrease number of voidings to 7-9x/day without an increase in urinary leakage. (07/21/22: No urinary leakage past week; only had to urinate 1x throught the night and has been urinating every 4 hours in past 3 days) STG Duration 08/16/22 (07/21/22: MET GOAL ) Raisin Separator Operator Goal (LTG) Pt will no longer have urinary leakage with sneezing, laughing and exercise. (07/21/22 No urinary leakage) LTG Duration 09/28/22 (07/21/22: MET GOAL) One Impairment HEP Short Term Goal (STG) Pt will be educated in automatic core stab ex using proper breathing techniques, and PF contraction with laughing, sneezing and exercise. STG Duration 07/22/22 (07/21/22: MET GOAL) Raisin Separator Operator Goal (LTG) Pt will be educated in self care HEP of core & core/R hip flex/ext strengthening, Mobility ex's: trunk R SB, L hip ER, bilateral IR. 06/30/22: HEP: Piriformis & LTR hip stretches, and Happy Baby Pose, Child's Pose, and [place] pose. 07/21/22: HEP: Clamshell, Core stab w/R SLR & hip AB, PARDEEP f/b self L/S traction in supine. 07/28/22: HEP: PARDEEP & adjusted current HEP as appropriate for marshall hip stretching and R hip flex/ext strengthening. LTG Duration 09/28/22 (07/28/22: Progresssing) Assessment Summary Assessment Pt has started [place] ex's at fitness center that is providing further stretching to hips, therefore with Kegels and stretching her urinary leakage appears controlled. Pt needs reminders to slow down with ex and keep core stable during hip strengthening ex's. Reviewed and clarified specifics of HEP .Explained how to fill out diary and counting of urination times. Pt receptive to education of recommended foods/drinks to decrease bladder irritation. Physical Therapy Plan Frequency and Duration Frequency of Treatment 1x/Week Plan of Care Start Date 06/30/22 Plan of Care End Date 09/28/22 Next Visit Focus/Plan Next Note Type Treatment Note Next Visit Plan Assess PF strength and tightness digitally and with biofeedback. Review self L/S traction. Review Bladder diary and make recommendations regarding voiding frequency and urinary times. HEP of core strengthening & Mobility ex's: trunk R SB. Progress core/R hip strengthening for symmetry. If urinary leakage or tightness in PF, try PF stretch with wand
--- NOTE | 2022-11-30 11:46 | PT.OPDS ---
Current Diagnoses Stiffness of unspecified hip, not elsewhere classified (07/28/22) Low back pain, unspecified (07/28/22) Other specified disorders of muscle (07/28/22) Bladder disorder, unspecified (07/28/22) Right lower quadrant pain (07/28/22) Visit Care Team Role Provider Type AMADEO Iraheta Attending Provider Advanced Machinist Helper Marine Family Provider Primary Care Provider Referring Provider Specialty: Family Practice Address: [address] [place] [address], [facility] Email: [email or web address] Visit Number Visit Number 02/19 Discharge Summary PT-OP-B Current Condition Start: 06/23/22 17:55 Freq: Status: Active Protocol: Document 06/30/22 11:23 LRN (Rec: 06/30/22 12:44 LRN [id number]) Current Condition History of Current Condition Onset Date 1 yr ago Current Complaints Urinary leakage. History of Current Condition Slow insidious onset. When exert self, trip, sneeze, cough, or with exercise class. Takes magnesium for sleep at night; therefore counteracts it with Metamucil due to loose stool. Prior Treatments and Tests None Developmental History Developmental History Has not had children. Treatment Goals Patient/Caregiver Goals Pt goal is be able to increase PF strength, learn how to properly contract PF, decrease number of voidings (11+) to 7 -9x/day. Don't want to leak with sneezing, laughing and exercise. Painful L hip for past yr. Prior Functional Status Baseline Function- Other No urinary leakage. Current Functional Impairments (Reported) Functional Limitations- Other Urinary leakage with sneezing, lifting and exercise. Personal Factors Other Personal Factors That May Effect Has not had intercouse due to Therapy/Recovery spouse restrictions. 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 Hx of controlled HBP & controlled depression by medications. Hx of anxiety. PT-OP-C Subjective Start: 06/23/22 17:55 Freq: Status: Active Protocol: Document 07/28/22 11:24 LRN (Rec: 07/28/22 12:15 LRN [id number]) OP-PT Subjective Patient Comments Patient Comments Had tingling in abdomen after exercise, thinks it may be due to exercising. Sneezed and laughed and did a [place] class and had no leakage. Rode a bike, went for hike and had no leakage. Back feels better with no soreness today. Used towel roll behind back on a long car ride and the back felt much better. PT-OP-I Pelvic Floor Start: 06/23/22 17:55 Freq: Status: Active Protocol: Document 07/14/22 13:49 LRN (Rec: 07/14/22 14:34 LRN [id number]) Pelvic Floor Assessment SEMG (uV) Baseline 0.5 Quick Contraction 2.6 10 Second Contraction 1.4 Recruitment Pattern Good Relaxation Good Holding Poor/Slow Stability of Hold Poor/Slow SEMG Stability of Rest Good PT-OP-J Posture/Palpation/Skin Start: 06/23/22 17:55 Freq: Status: Active Protocol: Document 06/30/22 11:23 LRN (Rec: 06/30/22 12:44 LRN [id number]) Posture Evaluation Position Standing Head/C-Spine Posture Side Bent Left,Forward Head T-Spine Posture Flattened L-Spine Posture Increased Lordosis Pelvis Posture (R) Rotated Posterior,(R) Iliac Crest Superior Comments Posture Comments Slight head tilt L and slight forward head. R chest is posterior. Upper T/S flattened. Decreased tone of R mid paraspinals. PT-OP-K Range of Motion Start: 06/23/22 17:55 Freq: Status: Active Protocol: Document 07/21/22 11:18 LRN (Rec: 07/21/22 12:15 LRN [id number]) Hip Goniometric Range of Motion Hip Right Passive Testing Position Supine Abduction 37 Internal Rotation 40 External Rotation 60 Comments SLR is WNL Left Passive Testing Position Supine Abduction 40 Internal Rotation 40 External Rotation 60 Comments SLR is WNL PT-OP-M Strength Start: 06/23/22 17:55 Freq: Status: Active Protocol: Document 06/30/22 11:23 LRN (Rec: 06/30/22 12:44 LRN [id number]) Trunk Strength Trunk Manual Muscle Testing Core Stabilization Poor core stab with MMT of flex & ext (R>L) Hip Strength Hip Manual Muscle Testing Right Flexion (L2) 4 Good Comments Strength is 5/5 except as indicated above. Left Comments Strength is 5/5 except as indicated above. PT-OP-T Assessment and Plan Start: 06/23/22 17:55 Freq: Status: Active Protocol: Document 11/30/22 11:28 LRN (Rec: 11/30/22 11:45 LRN [id number]) Physical Therapy Assessment Goals Three Impairment Pt uses substitute ms to perform a PF contraction. Short Term Goal (STG) Pt will be able to demonstrate a PF contraction without use of substitute muscles of the TA, Gluteal ms and hip AD's. 07/14/22: Pt able to perform a PF contraction with very minimal input from TA, GLuts and hip AD's on command. STG Duration 08/16/22 (07/14/22: MET GOAL) Half-Way Goal (LTG) Improve PF strength 3/5 around the PF clock in isolation of substitute muscles. LTG Duration 09/28/22 (11/30/22: Pt not available for final assessment ) Two Impairment Urinary leakage with sneezing, laughing and exercise. Impairment Pt voids 11+ times/day. Pt has urinary leakage with sneezing, laughing and exercise. Short Term Goal (STG) Pt will be able to decrease number of voidings to 7-9x/day without an increase in urinary leakage. (07/21/22: No urinary leakage past week; only had to urinate 1x throught the night and has been urinating every 4 hours in past 3 days) STG Duration 08/16/22 (07/21/22: MET GOAL ) Half-Way Goal (LTG) Pt will no longer have urinary leakage with sneezing, laughing and exercise. (07/21/22 No urinary leakage) LTG Duration 09/28/22 (07/21/22: MET GOAL) One Impairment HEP Short Term Goal (STG) Pt will be educated in automatic core stab ex using proper breathing techniques, and PF contraction with laughing, sneezing and exercise. STG Duration 07/22/22 (07/21/22: MET GOAL) Embedded Processor Goal (LTG) Pt will be educated in self care HEP of core & core/R hip flex/ext strengthening, Mobility ex's: trunk R SB, L hip ER, bilateral IR. 06/30/22: HEP: Piriformis & LTR hip stretches, and Happy Baby Pose, Child's Pose, and [place] pose. 07/21/22: HEP: Clamshell, Core stab w/R SLR & hip AB, PARDEEP f/b self L/S traction in supine. 07/28/22: HEP: PARDEEP & adjusted current HEP as appropriate for marshall hip stretching and R hip flex/ext strengthening. LTG Duration 09/28/22 (07/28/22: Progresssing) Assessment Summary Assessment Pt was seen for 3 treatment visits and was last seen . She showed some good improvement with therapy. Pt cancelled her remaining 6 appointments; therefore the pt is being discharged due to lack of attendance. Physical Therapy Plan Discharge Physical Therapy Discharge Reasons No Longer Attending PT Discharge Comments Thank you for your referral.
--- NOTE | 2023-01-05 09:30 | PT.OPDS ---
Current Diagnoses Stiffness of unspecified hip, not elsewhere classified (07/28/22) Low back pain, unspecified (07/28/22) Other specified disorders of muscle (07/28/22) Bladder disorder, unspecified (07/28/22) Right lower quadrant pain (07/28/22) Visit Care Team Role Provider Type AMADEO Iraheta Attending Provider Advanced Header Operator Family Provider Primary Care Provider Referring Provider Specialty: Family Practice Address: [address] [place] [address], [facility] Email: [email or web address] Visit Number Visit Number 02/[id number] Discharge Summary PT-OP-B Current Condition Start: 06/23/22 17:55 Freq: Status: Active Protocol: Document 06/30/22 11:23 LRN (Rec: 06/30/22 12:44 LRN [id number]) Current Condition History of Current Condition Onset Date 1 yr ago Current Complaints Urinary leakage. History of Current Condition Slow insidious onset. When exert self, trip, sneeze, cough, or with exercise class. Takes magnesium for sleep at night; therefore counteracts it with Metamucil due to loose stool. Prior Treatments and Tests None Developmental History Developmental History Has not had children. Treatment Goals Patient/Caregiver Goals Pt goal is be able to increase PF strength, learn how to properly contract PF, decrease number of voidings (11+) to 7 -9x/day. Don't want to leak with sneezing, laughing and exercise. Painful L hip for past yr. Prior Functional Status Baseline Function- Other No urinary leakage. Current Functional Impairments (Reported) Functional Limitations- Other Urinary leakage with sneezing, lifting and exercise. Personal Factors Other Personal Factors That May Effect Has not had intercouse due to Therapy/Recovery spouse restrictions. 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 Hx of controlled HBP & controlled depression by medications. Hx of anxiety. PT-OP-C Subjective Start: 06/23/22 17:55 Freq: Status: Active Protocol: Document 07/28/22 11:24 LRN (Rec: 07/28/22 12:15 LRN [id number]) OP-PT Subjective Patient Comments Patient Comments Had tingling in abdomen after exercise, thinks it may be due to exercising. Sneezed and laughed and did a [place] class and had no leakage. Rode a bike, went for hike and had no leakage. Back feels better with no soreness today. Used towel roll behind back on a long car ride and the back felt much better. PT-OP-I Pelvic Floor Start: 06/23/22 17:55 Freq: Status: Active Protocol: Document 07/14/22 13:49 LRN (Rec: 07/14/22 14:34 LRN [id number]) Pelvic Floor Assessment SEMG (uV) Baseline 0.5 Quick Contraction 2.6 10 Second Contraction 1.4 Recruitment Pattern Good Relaxation Good Holding Poor/Slow Stability of Hold Poor/Slow SEMG Stability of Rest Good PT-OP-J Posture/Palpation/Skin Start: 06/23/22 17:55 Freq: Status: Active Protocol: Document 06/30/22 11:23 LRN (Rec: 06/30/22 12:44 LRN [id number]) Posture Evaluation Position Standing Head/C-Spine Posture Side Bent Left,Forward Head T-Spine Posture Flattened L-Spine Posture Increased Lordosis Pelvis Posture (R) Rotated Posterior,(R) Iliac Crest Superior Comments Posture Comments Slight head tilt L and slight forward head. R chest is posterior. Upper T/S flattened. Decreased tone of R mid paraspinals. PT-OP-K Range of Motion Start: 06/23/22 17:55 Freq: Status: Active Protocol: Document 07/21/22 11:18 LRN (Rec: 07/21/22 12:15 LRN [id number]) Hip Goniometric Range of Motion Hip Right Passive Testing Position Supine Abduction 37 Internal Rotation 40 External Rotation 60 Comments SLR is WNL Left Passive Testing Position Supine Abduction 40 Internal Rotation 40 External Rotation 60 Comments SLR is WNL PT-OP-M Strength Start: 06/23/22 17:55 Freq: Status: Active Protocol: Document 06/30/22 11:23 LRN (Rec: 06/30/22 12:44 LRN [id number]) Trunk Strength Trunk Manual Muscle Testing Core Stabilization Poor core stab with MMT of flex & ext (R>L) Hip Strength Hip Manual Muscle Testing Right Flexion (L2) 4 Good Comments Strength is 5/5 except as indicated above. Left Comments Strength is 5/5 except as indicated above. PT-OP-T Assessment and Plan Start: 06/23/22 17:55 Freq: Status: Active Protocol: Document 01/05/23 09:19 LRN (Rec: 01/05/23 09:30 LRN [id number]) Physical Therapy Assessment Goals Three Impairment Pt uses substitute ms to perform a PF contraction. Short Term Goal (STG) Pt will be able to demonstrate a PF contraction without use of substitute muscles of the TA, Gluteal ms and hip AD's. 07/14/22: Pt able to perform a PF contraction with very minimal input from TA, GLuts and hip AD's on command. STG Duration 08/16/22 (07/14/22: MET GOAL) Group Home Goal (LTG) Improve PF strength 3/5 around the PF clock in isolation of substitute muscles. LTG Duration 09/28/22 (01/05/23: NOT MET GOAL, pt failed to complete program) Two Impairment Urinary leakage with sneezing, laughing and exercise. Impairment Pt voids 11+ times/day. Pt has urinary leakage with sneezing, laughing and exercise. Short Term Goal (STG) Pt will be able to decrease number of voidings to 7-9x/day without an increase in urinary leakage. (07/21/22: No urinary leakage past week; only had to urinate 1x throught the night and has been urinating every 4 hours in past 3 days) STG Duration 08/16/22 (07/21/22: MET GOAL ) Group Home Goal (LTG) Pt will no longer have urinary leakage with sneezing, laughing and exercise. (07/21/22 No urinary leakage) LTG Duration 09/28/22 (07/21/22: MET GOAL) One Impairment HEP Short Term Goal (STG) Pt will be educated in automatic core stab ex using proper breathing techniques, and PF contraction with laughing, sneezing and exercise. STG Duration 07/22/22 (07/21/22: MET GOAL) Rocket Motor Mechanic Goal (LTG) Pt will be educated in self care HEP of core & core/R hip flex/ext strengthening, Mobility ex's: trunk R SB, L hip ER, bilateral IR. 06/30/22: HEP: Piriformis & LTR hip stretches, and Happy Baby Pose, Child's Pose, and Lefor pose. 07/21/22: HEP: Clamshell, Core stab w/R SLR & hip AB, PARDEEP f/b self L/S traction in supine. 07/28/22: HEP: PARDEEP & adjusted current HEP as appropriate for marshall hip stretching and R hip flex/ext strengthening. LTG Duration 09/28/22 (01/05/23: NOT MET GOAL, pt failed to complete program) Assessment Summary Assessment Pt was last seen 07/28/22. Pt next 2 appts were cancelled for different reasons, but pt then cancelled her remaining 3 appts. Pt did not meet all her goals. The pt would benefit from completion of her rehab program, perhaps at a later date. Physical Therapy Plan Discharge Physical Therapy Discharge Reasons No Longer Attending PT Discharge Comments Thank you for your referral.
== END 2023-01-06 11:43 | disposition home or self-care (01) ==
LOC: PHYS 11:15
PROVIDERS: Family Provider Nurse Practitioner; PCP Nurse Practitioner; Referring Provider Nurse Practitioner; Visit Provider Nurse Practitioner
DX: M62.89 Other specified disorders of muscle (principal); N32.9 Bladder disorder, unspecified; M25.659 Stiffness of unspecified hip, not elsewhere classified; R10.31 Right lower quadrant pain; M54.50 Low back pain, unspecified
CPT/HCPCS: 97110; 97162; 97535

== ENCOUNTER → 2022-11-10 10:27 | Outpatient (CLI) | payer BC, SELFPAY ==
--- NOTE | 2022-11-10 10:29 | DI.ECHO.S_ITS ---
[facility] +---------+ : : [address] : : : : [id number] : : : : Phone: [phone] +---------+ Echocardiogram Report + + :Name: MARILEE GEORGES Study Date: 11/10/2022 Height: 66 in : :[facility] ReadingLocation: Weight: 126 lb : : Gender: Female BSA: 1.6 m2 : :: 1970 Age: 52 yrs BP: 126/84 mmHg: :Reason For Study: Syncope and collapse : :Ordering Physician: WON, : :LAUREN Performed By: Shaneka Kapadia : :Referring: LAUREN UPTON : + + Interpretation Summary 1) Normal left ventricular thickness, size, wall motion, and systolic function (EF 55-60%). 2) Normal right ventricular size and function. 3) No significant valvular abnormalities. 4) No prior Echo available for comparison. Procedure: A two-dimensional transthoracic echocardiogram with color flow and Doppler was performed. The patient was in 65-79 during the exam. Left Ventricle: The left ventricle is normal in size and wall thickness. The ejection fraction is estimated to be 55-60%. Left ventricular systolic function appears normal without focal wall motion abnormalities. Diastolic parameters suggest probable normal left ventricular diastolic function and normal filling pressures. Right Ventricle: The right ventricle is normal in size and function. Atria: The left atrial size is normal. Right atrial size is normal. There is no Doppler evidence for an interatrial shunt. Mitral Valve: The mitral valve is normal in structure and function. There is trace mitral regurgitation. Aortic Valve: The aortic valve is normal in structure and function. There is no aortic valve stenosis. No aortic regurgitation is present. Tricuspid Valve: The tricuspid valve is normal in structure and function. There is a trace or physiologic amount of tricuspid regurgitation. The right ventricular systolic pressure is estimated to be at least 16.7 mmHg based on an estimated right atrial pressure of 3 mm Hg. Pulmonic Valve: The pulmonic valve leaflets are thin and pliable; valve motion is normal. There is mild pulmonic regurgitation. Great Vessels: The aortic root is normal size. The dimensions of the ascending aorta are normal. The IVC is of normal diameter and collapses greater than 50% with a sniff. This suggests a low right atrial pressure of 3 mm Hg. Pericardium/ Pleura There is no pericardial effusion. There is no pleural effusion. MMode/2D Measurements & Calculations LVIDd: 4.0 cm LVOT diam: 1.9 cm LVIDs: 2.6 cm Ao root diam: 3.2 cm FS: 35.0 % asc Aorta Diam: 3.2 cm EPSS: 0.20 cm IVSd: 0.60 cm LVPWd: 0.80 cm LV mullins. diameter/BSA (cm/m^2): 2.4 LV sys. diameter/BSA (cm/m^2): 1.6 LA dimension: 3.3 cm RA long axis: 3.7 cm LA A2 area: 12.6 cm2 RA area: 9.6 cm2 LA A4 area: 11.1 cm2 RA vol: 21.6 ml LA length (vol): 4.4 cm RA : 13.1 ml/m2 LA vol: 27.2 ml IVC diam: 1.7 cm LA vol index: 16.5 ml/m2 RVD1 (basal): 3.2 cm LVLs ap4: 5.7 cm LVLd ap2: 6.9 cm TAPSE_phl: 2.1 cm LVLs ap2: 6.3 cm Doppler Measurements & Calculations Ao V2 max: 93.4 cm/sec LVOT Max Nick: 75.2 cm/sec Ao V2 mean: 72.2 cm/sec LV V1 max P.3 mmHg Ao max P.0 mmHg LV V1 VTI: 16.2 cm Ao mean P.0 mmHg MARYANA(I,D): 2.3 cm2 Ao V2 VTI: 20.0 cm MARYANA(V,D): 2.3 cm2 sev ratio: 0.81 MARYANA indexed to BSA (cm^2/m^2): 1.4 MV E max nick: 61.4 cm/sec TR max nick: 185.0 cm/sec MV A max nick: 53.5 cm/sec TR max P.7 mmHg MV E/A: 1.1 PA V2 max: 71.1 cm/sec Med Peak E' Nick: 7.7 cm/sec PA V2 mean: 52.4 cm/sec E/E' med: 7.9 PA mean P.0 mmHg Lat Peak E' Nick: 12.4 cm/sec E/E' lat: 5.0 E/e' average: 6.4 MV dec time: 0.14 sec MVA(VTI): 2.3 cm2 MV V2 mean: 43.5 cm/sec SV(LVOT): 45.9 ml MV mean P.0 mmHg MV V2 VTI: 19.9 cm AV VR_phl: 0.81 MARYANA(VTI)/BSA_phl: 1.4 Reading Physician:04:56 PM
== END ==
PROVIDERS: Family Provider Nurse Practitioner; PCP Family Medicine; Referring Provider Family Medicine; Visit Provider Family Medicine
DX: I37.1 Nonrheumatic pulmonary valve insufficiency (principal); R55 Syncope and collapse; Z80.3 Family history of malignant neoplasm of breast
CPT/HCPCS: 93306

== ENCOUNTER → 2022-11-18 14:01 | Outpatient (CLI) | payer BC, SELFPAY ==
[2022-11-18 14:54] LABS: COVID19 -Nasal RAPID Negative (Negative)
--- NOTE | 2022-11-21 20:14 | DI.NM.S_ITS ---
DATE OF SERVICE: 11/18/2022 PROCEDURE PERFORMED: Exercise treadmill stress testing without imaging. ORDERING PROVIDER: Dr. John Mcgregor. INDICATIONS: The patient is a 52-year-old female with hypertension and a recent syncopal episode. FINDINGS: 1. The patient was able to exercise for 9 minutes, 1 second on a standard Aguilar protocol, suggesting good exercise capacity with an JAMESON of -20%, achieving 10.1 METs. 2. She had a normal heart rate and blood pressure response to exercise, achieving a maximum heart rate of 178 BPM (107% of her predicted maximum). 3. She had no chest discomfort, lightheadedness, or other anginal symptoms. 4. Her resting ECG shows sinus rhythm with normal ST segments. There were no significant ST-segment shifts or arrhythmias with the stress. IMPRESSION: 1. Normal exercise treadmill stress test for ischemia. 2. Good exercise capacity without angina, lightheadedness, or arrhythmias. She had a normal blood pressure response to exercise. [place] - Ronni/leonela doc#: [id number]/job#: [id number] dd: 11/21/2022 16:08:00 dt: 11/21/2022 18:33:00 DICTATING /COPIES TO: Brian Cherry MD COPIES MNE: SAPPHIRE;
== END ==
PROVIDERS: Family Provider Nurse Practitioner; PCP Family Medicine; Referring Provider Family Medicine; Visit Provider Family Medicine
DX: R55 Syncope and collapse (principal); I10 Essential (primary) hypertension; Z20.822 Contact with and (suspected) exposure to COVID-19
CPT/HCPCS: 87635; 93017

== ENCOUNTER → 2022-12-13 08:17 | Outpatient (CLI) | payer BC, SELFPAY ==
[2022-12-13 09:32] LABS: Add Manual Diff / Slide Review NO; Basophils Absolute Auto 0 /uL (0-100); Basophils Percent Auto 0.5 % (0-2); Eosinophils Absolute Auto 100 /uL (0-450); Eosinophils Percent Auto 1.3 % (2-4); Hemoglobin 13.6 g/dL (12.0-16.0); Lymphocytes Absolute Auto 1700 /uL (1100-4500); Lymphocytes Percent Auto 43.9 % (25-40); Mean Corpuscular HGB Conc 33.9 % (30-36); Mean Corpuscular Hemoglobin 33.2 PG (26-34); Mean Corpuscular Volume 98.1 fL (80-100); Monocytes Absolute Auto 400 /uL (0-900); Monocytes Percent Auto 10.4 % (3-14); Neutrophils Absolute Auto 1700 /uL (1500-7000); Neutrophils Percent Auto 43.9 % (50-75); Platelet Count 248 X10^3/uL (150-400); Red Blood Cell Count 4.08 X10^6/uL (4.0-5.2); Red Cell Distribution Width 11.9 % (11.6-14.8)
[2022-12-13 09:45] LABS: Iron 216 ug/dL (37-170)
[2022-12-13 09:46] LABS: HEMOLYSIS < 15 (0-50)
[2022-12-13 09:48] LABS: Alanine Aminotransferase 28 IU/L (<35); Albumin 4.2 g/dL (3.5-5.0); Albumin Globulin Ratio 1.4 (1.0-2.8); Alkaline Phosphatase 75 U/L (38-126); Aspartate Aminotransferase 31 IU/L (14-36); BUN Creatinine Ratio 12.3 (6-22); Bilirubin Total 1.2 mg/dL (0.2-1.3); Blood Urea Nitrogen 8 mg/dL (7-17); Calcium 8.9 mg/dL (8.4-10.2); Carbon Dioxide 28 mmol/L (22-32); Chloride 100 mmol/L (98-107); Cholesterol 257 mg/dL (140-199); Estimated Glomerular Filt Rate > 60 mL/min (>60); Glucose 100 mg/dL (70-100); HEMOLYSIS < 15 (0-50); Potassium 4.4 mmol/L (3.4-5.1); Sodium 134 mmol/L (137-145); Total Protein 7.2 g/dL (6.3-8.2); Triglycerides 61 mg/dL (35-150)
[2022-12-13 09:57] LABS: HDL Cholesterol 140 mg/dL (40-60); LDL Cholesterol Calculated 105 mg/dL (<100)
[2022-12-13 10:15] LABS: Percent Iron Saturation 87 % (15-50); Total Iron Binding Capacity 247 ug/dL (265-497)
[2022-12-13 10:17] LABS: Transferrin 217 mg/dL (206-381)
[2022-12-13 11:40] LABS: TSH w/ Reflex to FT4 2.73 uIU/mL (0.47-4.68)
== END ==
PROVIDERS: Family Provider Nurse Practitioner; PCP Family Medicine; Referring Provider Family Medicine; Visit Provider Family Medicine
DX: E78.00 Pure hypercholesterolemia, unspecified (principal); I10 Essential (primary) hypertension; L60.1 Onycholysis
CPT/HCPCS: 36415; 80053; 80061; 83540; 83550; 84443; 85025

== ENCOUNTER → 2022-12-26 08:05 | Outpatient (CLI) | payer BC, SELFPAY ==
[2022-12-26 10:39] LABS: Ferritin 161 ng/mL (11-264)
== END ==
PROVIDERS: Family Provider Nurse Practitioner; PCP Family Medicine; Referring Provider Family Medicine; Visit Provider Family Medicine
DX: E83.19 Other disorders of iron metabolism (principal)
CPT/HCPCS: 36415; 82728

== ENCOUNTER → 2022-12-27 15:08 | Outpatient (CLI) | payer BC, SELFPAY ==
[2022-12-27 16:48] LABS: Influenza A - CEPHEID Flu A NEGATIVE (NEGATIVE); Influenza B - CEPHEID Flu B NEGATIVE (NEGATIVE); Respiratory Syncytial Virus Negative (Negative)
[2022-12-27 16:59] LABS: COVID-19 CEPHEID 4-PLEX PCR Negative (Negative)
== END ==
PROVIDERS: Family Provider Nurse Practitioner; PCP Family Medicine; Visit Provider Nurse Practitioner Family
DX: R05.9 Cough, unspecified (principal)
CPT/HCPCS: 0241U

== ENCOUNTER → 2022-12-30 10:50 | Outpatient (CLI) | payer BC, SELFPAY ==
--- NOTE | 2022-12-30 10:51 | DI.RAD.S_ITS ---
PROCEDURE: XR DEXA AXIAL SKELETON INDICATIONS: screen osteoporosis COMPARISON: None. FINDINGS: This blank DEXA report has been sent in error by the PACS system. The correct and complete report will be forthcoming in 1-2 days. Thank you for your patience and understanding. Dictated by: Jair Gonzales M.D. on 12/30/2022 at 12:22 Approved by: Jair Gonzales M.D. on 12/30/2022 at 12:22
--- NOTE | 2022-12-30 11:20 | DI.DEXA.S_ITS ---
Indication: postmenopausal; screening for osteoporosis; Referring Provider: LAUREN UPTON D.O. Study: Bone densitometry was performed. Exam Date: December 30, 2022 Accession number: [id number] Bone Density: Region BMD T-score Z-score Classification AP Spine(L1-L4) 0.928 -1.1 0.0 Osteopenia Femoral Neck (Left) 0.553 -2.7 -1.6 Osteoporosis Total Hip (Left) 0.785 -1.3 -0.6 Osteopenia Femoral Neck (Right) 0.622 -2.0 -1.0 Osteopenia Total Hip (Right) 0.781 -1.3 -0.6 Osteopenia Total Hip Mean 0.783 -1.3 -0.6 Osteopenia World Health Organization criteria for BMD impression classify patients as: Normal (T-score at or above -1.0), Osteopenia (T-score between -1.0 and -2.5), or Osteoporosis (T-score at or below -2.5). 10-year Fracture Risk: FRAX not reported because: Some T-score for Spine Total or Hip Total or Femoral Neck at or below -2.5 Impression: The patient has osteoporosis, based on the Left Femoral Neck T-score. Discussion: INCREASED RISK OF FRACTURE. BONE DENSITY IS UNDESIRABLY LOW AT ONE OR MORE SKELETAL SITES, CONSISTENT WITH POSTMENOPAUSAL OSTEOPOROSIS. This patient's lowest T-score meets the World Health Organization's (WHO) criteria for osteoporosis at one or more sites (T-score -2.5 or below). In untreated patients, the risk of osteoporotic fracture increases approximately two-fold for each 1.0 SD decrease in T-score. Low bone density is not the only risk factor for fracture; also consider factors such as patient's age, frailty or poor health, risk of falling, risk of injury, previous osteoporotic fracture, family history of osteoporosis, cigarette smoking, low body weight, etc. Not everyone with low bone mineral density has osteoporosis; osteomalacia and other metabolic bone disorders should also be considered. Patients who have osteoporosis should be evaluated for specific diseases and conditions (secondary causes) that may cause or contribute to bone loss. The [place] [employer]ocrin[employer] (AACE) and National Osteoporosis Foundation (NOF) recommend pharmacologic intervention for all postmenopausal women whose T-score is in this range. The patient should follow a healthful lifestyle (good nutrition with adequate calcium and vitamin D, and appropriate weight-bearing exercise). Follow-Up: Consider a repeat BMD and Vertebral Fracture Assessment (VFA) exam in 2 years or sooner if medically necessary, to reassess this patient's status. Reported by: Cecy Gonzales M.D. on 12/30/2022 11:33:00 AM.
== END ==
PROVIDERS: Family Provider Nurse Practitioner; PCP Family Medicine; Referring Provider Family Medicine; Visit Provider Family Medicine
DX: Z13.820 Encounter for screening for osteoporosis (principal); L60.1 Onycholysis; Z78.0 Asymptomatic menopausal state; M81.0 Age-related osteoporosis without current pathological fracture
CPT/HCPCS: 77080

== ENCOUNTER → 2023-01-10 09:36 | Outpatient (CLI) | payer BC, SELFPAY ==
[2023-01-10 11:49] LABS: Add Manual Diff / Slide Review NO; Basophils Absolute Auto 0 /uL (0-100); Basophils Percent Auto 0.4 % (0-2); Eosinophils Absolute Auto 0 /uL (0-450); Eosinophils Percent Auto 0.3 % (2-4); Hematocrit 40.1 % (36-46); Hemoglobin 13.1 g/dL (12.0-16.0); Lymphocytes Absolute Auto 400 /uL (1100-4500); Lymphocytes Percent Auto 6.4 % (25-40); Mean Corpuscular HGB Conc 32.8 % (30-36); Mean Corpuscular Hemoglobin 32.6 PG (26-34); Mean Corpuscular Volume 99.3 fL (80-100); Monocytes Absolute Auto 800 /uL (0-900); Monocytes Percent Auto 12.3 % (3-14); Neutrophils Absolute Auto 5000 /uL (1500-7000); Neutrophils Percent Auto 80.6 % (50-75); Platelet Count 312 X10^3/uL (150-400); Red Blood Cell Count 4.03 X10^6/uL (4.0-5.2); Red Cell Distribution Width 13.5 % (11.6-14.8); White Blood Cell Count 6.2 X10^3/uL (4.5-11.0)
[2023-01-10 12:08] LABS: HEMOLYSIS < 15 (0-50); Iron 34 ug/dL (37-170)
[2023-01-10 12:19] LABS: Percent Iron Saturation 11 % (15-50); Total Iron Binding Capacity 298 ug/dL (265-497); Transferrin 257 mg/dL (206-381)
[2023-01-10 12:42] LABS: Ferritin 94 ng/mL (11-264)
== END ==
PROVIDERS: Family Provider Nurse Practitioner; PCP Family Medicine; Referring Provider Family Medicine; Visit Provider Family Medicine
DX: D75.89 Other specified diseases of blood and blood-forming organs (principal); E83.19 Other disorders of iron metabolism; I10 Essential (primary) hypertension; L60.1 Onycholysis
CPT/HCPCS: 36415; 82728; 83540; 83550; 85025

== ENCOUNTER 2023-03-16 08:42 | Day surgery (SDC) | payer BC, SELFPAY ==
[2023-03-16 09:13] VITALS: BP 148/87; PULSE 92; RESP 18; TEMP 36.2; O2SAT 98; BMI 20.8
[2023-03-16] MEDS: LACTATED RINGERS 1,000 ML 42 ML IV (09:28)
--- NOTE | 2023-03-16 09:58 | PM.HP.1 ---
History of Present Illness History of Present Illness Date Patient Seen: 03/16/23 Time Patient Seen: 09:58 [place] [facility] [place]: Dixie is a 53-year-old woman who presents for a colonoscopy. She has never had 1 before. She has no first-degree relatives with colon cancer. She has had occasional blood from what she believes is a hemorrhoid. [facility] Medical History (Updated 03/16/23 @ 09:59 by Asher Rogers MD) Anxiety (~2003) Anxiety and depression BPV (benign positional vertigo) Fainting episodes FHx: breast cancer Finger pain, left Foot pain (~2017) Herpes (~1986) Hypertension (~1997) Iliotibial band syndrome, right leg Iron overload Low back pain Macrocytosis without anemia Nonscarring hair loss, unspecified Onycholysis Osteoporosis Pelvic floor dysfunction in female Physical exam, annual Post-menopausal Pure hypercholesterolemia Recurrent sinusitis (~2018) Screening for breast cancer Upper extremity somatic dysfunction Wears glasses Surgical History History of removal of cyst (~2004) Family History Father History of heart disease Hyperlipidemia Mother Hypertension Sister Breast cancer Grandfather Cancer Grandmother Hypertension Grandfather Cancer Grandmother Diabetes mellitus Social History household members: spouse Smoking Status: Former smoker alcohol intake: current substance use type: does not use Meds Home Medications and Allergies Home Medications Medication Instructions Recorded Confirmed Type EPA extra 1 tab PO DAILY 12/03/20 03/16/23 History buspirone 5 mg tablet 7.5 mg PO BID 12/03/20 03/16/23 History cholecalciferol (vitamin D3) 125 125 mcg PO DAILY 12/03/20 03/16/23 History mcg (5,000 unit) capsule alprazolam 0.5 mg tablet 0.25 mg PO DAILY PRN anxiety #30 08/31/21 03/16/23 Rx tabs escitalopram oxalate 5 mg tablet 5 mg PO DAILY 09/24/21 03/16/23 History valacyclovir 500 mg tablet See Rx Instructions .Route 03/23/22 03/16/23 Rx .COMPLEX #30 tabs estradiol 0.01% (0.1 mg/gram) 1 g vaginal DAILY #42.5 grams 05/11/22 03/16/23 Rx vaginal cream (Estrace) lisinopril 2.5 mg tablet 2.5 mg PO DAILY #90 tabs 02/14/23 03/16/23 Rx Allergies Allergy/AdvReac Type Severity Reaction Status Date / Time erythromycin base Allergy Mild GI issues Verified 03/16/23 09:07 [From Erythrocin] Sulfa (Sulfonamide Allergy Mild Rasj Verified 03/16/23 09:07 Antibiotics) Exam Vital Signs (past 8 hours): - 03/16/23 09:13 Temperature 97.1 F L Pulse Rate 92 H Respiratory Rate 18 Blood Pressure 148/87 H Pulse Oximetry 98 Oxygen Delivery Method Room Air Oxygen Delivery Method Room Air Const General: healthy appearing Assessment & Plan Assessment and plan (1) Colon cancer screening: Status: Acute Plan We reviewed the risks and benefits of colonoscopy for colon cancer screening and she would like to proceed.
--- NOTE | 2023-03-16 11:01 | P.OP.COLON_ITS ---
Operative Date/Time/Diagnoses Date of procedure: 03/16/23 Time of procedure: 11:02 Pre-op diagnosis: Colon cancer screening Post-op diagnosis: same Procedure & Clinicians Study performed: Colonoscopy Same procedure as scheduled: Yes Surgeon: Asher Rogers Procedure Notes Procedure in detail: Surgeon: Asher Rogers MD Anesthesia: Chuck Hedrick MD Procedure: The patient was brought to the endoscopy suite, placed in left lateral decubitus position. The patient was connected to monitoring devices. A time-out was performed. Sedation was administered. Once the patient was adequately sedated, a digital rectal exam was performed and was normal for a small external hemorrhoid. The scope was then inserted and advanced to the cecum where the appendiceal orifice was identified and photographed. The scope was then slowly withdrawn over greater than 6 minutes. The mucosa was thoroughl y inspected. No abnormalities were seen. The scope was retroflexed in the rectum. No abnormalities were seen. The scope was straightened and removed. The patient was awakened and brought to recovery. Scope withdrawal time: 7 minutes Sedation time: 15 minutes EBL: 0 Findings: Normal colon Post-procedure Recommendations: Colonoscopy in 10 years Disposition: PACU
[2023-03-16 11:03] VITALS: BP 109/73; PULSE 85; RESP 18; TEMP 36.2; O2SAT 97
[2023-03-16 11:08] VITALS: BP 116/76; PULSE 90; RESP 22; O2SAT 99
[2023-03-16 11:12] VITALS: BP 128/83; PULSE 80; RESP 12; O2SAT 99
[2023-03-16 11:25] VITALS: BP 132/68; PULSE 92; RESP 18; TEMP 36.1; O2SAT 99
== END 2023-03-16 11:28 | disposition home or self-care (01) ==
PROVIDERS: Family Provider Nurse Practitioner; PCP Family Medicine; Referring Provider Surgery; Visit Provider Surgery
PROC: 0DJD8ZZ Inspection of Lower Intestinal Tract, Via Natural or Artificial Opening Endoscopic (ICD-10-PCS; CPT 45378; principal; 2023-03-16 09:45)
DX: Z12.11 Encounter for screening for malignant neoplasm of colon (principal)
CPT/HCPCS: 45378; J2704; J3010

== ENCOUNTER → 2023-03-21 09:18 | Outpatient (CLI) | payer BC, SELFPAY ==
--- NOTE | 2023-03-21 | DI.MG.S_ITS ---
BILATERAL DIGITAL SCREENING MAMMOGRAM 3D/2D WITH CAD: 03/21/2023 CLINICAL: Routine screening. Comparison is made to exams dated: 11/21/2019 mammogram and 11/19/2018 mammogram - outside location. Both breasts are heterogeneously dense, which may obscure small masses (category c / 51-75% glandular tissue). Current study was also evaluated with a Computer Aided Detection (CAD) system. No significant masses, calcifications, or other findings are seen in either breast. There has been no significant interval change. IMPRESSION: NEGATIVE There is no mammographic evidence of malignancy. A 1 year screening mammogram is recommended. Based on Tyrer-Cuzick model (a risk assessment model), the patient's lifetime risk is 26.2% and her 10 year risk is 8.5%. If a patient has an elevated risk, a more comprehensive evaluation should be considered and/or a referral to a genetic counselor. The [employer] [employer], [employer], and NCCN Guidelines advise the consideration of Breast MRI as an adjunct to screening mammography in patients whose Lifetime risk to develop breast cancer is 20% or higher. This exam was interpreted at Station ID: [id number]. NOTE: For mammograms, a report in lay terms will be sent to the patient. Approximately 15% of breast malignancies will not be visualized mammographically. In the management of a palpable breast mass, a negative mammogram must not discourage biopsy of a clinically suspicious lesion. Electronically Signed By: Amanda manzanares/esther:03/22/2023 17:21:00 letter sent: Normal Exam ACR BI-RADS Category 1: Negative [id number]
== END ==
PROVIDERS: Family Provider Nurse Practitioner; PCP Family Medicine; Referring Provider Family Medicine; Visit Provider Family Medicine
DX: Z12.31 Encounter for screening mammogram for malignant neoplasm of breast (principal)
CPT/HCPCS: 77063; 77067

== ENCOUNTER → 2024-03-25 11:17 | Outpatient (CLI) | payer BC, SELFPAY ==
--- NOTE | 2024-03-25 11:18 | DI.MG.S_ITS ---
BILATERAL DIGITAL SCREENING MAMMOGRAM 3D/2D WITH CAD: 03/25/2024 CLINICAL: Routine screening. Family history of breast cancer. Comparison is made to exams dated: 03/21/2023 mammogram, 03/17/2022 mammogram, and 03/15/2021 mammogram - [facility]. Both breasts are heterogeneously dense, which may obscure small masses (category c / 51-75% glandular tissue). Current study was also evaluated with a Computer Aided Detection (CAD) system. No significant masses, calcifications, or other findings are seen in either breast. There has been no significant interval change. IMPRESSION: NEGATIVE There is no mammographic evidence of malignancy. A 1 year screening mammogram is recommended. Based on Tyrer-Cuzick model (a risk assessment model), the patient's lifetime risk is 25.9% and her 10 year risk is 9.0%. If a patient has an elevated risk, a more comprehensive evaluation should be considered and/or a referral to a genetic counselor. The [employer], [employer], and NCCN Guidelines advise the consideration of Breast MRI as an adjunct to screening mammography in patients whose Lifetime risk to develop breast cancer is 20% or higher. This exam was interpreted at Station ID: [id number]. NOTE: For mammograms, a report in lay terms will be sent to the patient. Approximately 15% of breast malignancies will not be visualized mammographically. In the management of a palpable breast mass, a negative mammogram must not discourage biopsy of a clinically suspicious lesion. Electronically Signed By: Riya mir/esther:03/25/2024 17:15:42 letter sent: Normal Exam ACR BI-RADS Category 1: Negative [id number]
== END ==
PROVIDERS: Family Provider Registered Nurse; PCP Registered Nurse; Referring Provider Registered Nurse; Visit Provider Registered Nurse
DX: Z12.31 Encounter for screening mammogram for malignant neoplasm of breast (principal); Z80.3 Family history of malignant neoplasm of breast; R92.333 Mammographic heterogeneous density, bilateral breasts
CPT/HCPCS: 77063; 77067

== ENCOUNTER → 2024-04-05 14:07 | Outpatient (CLI) | payer BC, SELFPAY ==
--- NOTE | 2024-04-05 14:10 | DI.RAD.S_ITS ---
PROCEDURE: XR HIP W PEL IF DONE LT 2V INDICATIONS: HIP DJD TECHNIQUE: AP pelvis with lateral view(s) of the left hip(s). COMPARISON: None. FINDINGS: Bones: No fractures or dislocations. Pelvic ring appears intact. No suspicious bony lesions. Mild bilateral hip degenerative change. Soft tissues: The visualized bowel gas pattern is normal. No suspicious soft tissue calcifications. IMPRESSION: No acute bony abnormality. Mild bilateral hip degenerative change. Dictated by: Ellis Stearns M.D. on 04/05/2024 at 14:56 Approved by: Ellis Stearns M.D. on 04/05/2024 at 14:56
== END ==
PROVIDERS: Family Provider Registered Nurse; PCP Registered Nurse; Referring Provider Chiropractor; Visit Provider Chiropractor
DX: M16.12 Unilateral primary osteoarthritis, left hip (principal)
CPT/HCPCS: 73502

== ENCOUNTER → 2024-12-27 14:09 | Outpatient (CLI) | payer BC, SELFPAY ==
--- NOTE | 2024-12-27 14:10 | DI.CT.S_ITS ---
PROCEDURE: CT LUNG LOW DOSE SCREENING INDICATIONS: smoking history TECHNIQUE: Noncontrast 2.0-2.5 mm thick sections acquired from the pulmonary apices to the posterior costophrenic angles. 7 mm thick axial MIP, and 5 mm coronal and sagittal reformats were then acquired. For radiation dose reduction, the following was used: automated exposure control, adjustment of mA and/or kV according to patient size. COMPARISON: None. FINDINGS: Image quality: Diagnostic. Lower Neck: No enlarged lymph nodes. Thyroid: No thyroid nodules which require sonographic follow up, per consensus guidelines. Axillae: No enlarged lymph nodes. Chest Wall: Unremarkable. Bones: Old healed right lateral rib fracture. Wscy-ng-sshloxyj compression fractures at T12 and L1 are of uncertain age, although favored to be chronic. Lungs and Pleura: No pneumothorax or pleural effusions. A few scattered pulmonary micronodules measuring 3 mm less are seen bilaterally. Heart: Heart size is normal. No pericardial effusion. Thoracic Vessels: The aorta and pulmonary arteries demonstrate normal size. Mediastinum and Yane: No enlarged lymph nodes. Esophagus: No wall thickening. No hiatal hernia. Upper Abdomen: Visualized upper abdomen solid organs and bowel loops appear normal. IMPRESSION: No suspicious pulmonary nodules. LUNG-RADS 2; continued annual screening, if eligible. Clinically Significant Non-pulmonary Findings: T12 and L1 vertebral body compression fractures are of indeterminate age. Approved by: Jv Hutchison M.D. on 12/27/2024 at 15:07
== END ==
PROVIDERS: Family Provider Registered Nurse; PCP Registered Nurse; Referring Provider Registered Nurse; Visit Provider Registered Nurse
DX: Z12.2 Encounter for screening for malignant neoplasm of respiratory organs (principal); Z87.891 Personal history of nicotine dependence
CPT/HCPCS: 71271

== ENCOUNTER → 2025-03-26 13:21 | Outpatient (CLI) | payer BC, SELFPAY ==
--- NOTE | 2025-03-26 13:23 | DI.MG.S_ITS ---
MM screening mammo BI: 03/26/2025. BI-RADS: 1 CLINICAL: 55-year old female for bilateral screening mammogram. Tyrer-Cuzick lifetime risk of 17.1%. Current reported family history of breast cancer: sister. PRIOR EXAMS 03/25/2024, 03/21/2023, 03/17/2022, 03/15/2021. MAMMOGRAPHY TECHNIQUE: 2D and 3D (tomosynthesis) digital mammographic views obtained, with additional images as needed for full coverage. Current study was also evaluated with a Computer Aided Detection (CAD) system. DENSITY C. The breasts are heterogeneously dense, which may obscure small masses. MAMMOGRAPHY FINDINGS Bilateral: No suspicious mass, asymmetry, microcalcification, or other abnormality seen. No significant change from comparison. IMPRESSION: * No evidence of malignancy. RECOMMENDATIONS Bilateral * Annual screening mammography. OVERALL ASSESSMENT CATEGORY BI-RADS-1: Negative. The [employer] recommends annual screening mammography beginning at age 40 for women with average risk of breast cancer. ELECTRONICALLY SIGNED: Riya Lloyd M.D. on 03/26/2025 at 04:54:44 PM PT Interpreting Station ID: [id number]
== END ==
LOC: MAMMO 13:22
PROVIDERS: Family Provider Registered Nurse; PCP Registered Nurse; Referring Provider Registered Nurse; Visit Provider Registered Nurse
DX: Z12.31 Encounter for screening mammogram for malignant neoplasm of breast (principal); Z80.3 Family history of malignant neoplasm of breast; R92.333 Mammographic heterogeneous density, bilateral breasts
CPT/HCPCS: 77063; 77067